=== PATIENT | male | born 1950 | race Caucasian/White ===

== ENCOUNTER → 2018-10-14 | Outpatient (CLI) | payer MEDICARE ==
[~2018-10-14] VITALS: Ht 175.3 cm; Wt 121.0 kg
[~2018-10-14] MED LIST: LIDOCAINE 4% 50 ML SOLUTION TP ONE
[2018-10-14 09:37] VITALS: BP 106/62
== END | disposition home or self-care (01) ==
LOC: HBOWC 08:56
PROVIDERS: ATTEND Emergency Medicine
DX: E11.621 Type 2 diabetes mellitus with foot ulcer (principal); I83.015 Varicose veins of right lower extremity with ulcer other part of foot; L97.512 Non-pressure chronic ulcer of other part of right foot with fat layer exposed; I83.025 Varicose veins of left lower extremity with ulcer other part of foot; L97.522 Non-pressure chronic ulcer of other part of left foot with fat layer exposed; E11.42 Type 2 diabetes mellitus with diabetic polyneuropathy; E11.51 Type 2 diabetes mellitus with diabetic peripheral angiopathy without gangrene; I87.2 Venous insufficiency (chronic) (peripheral); I11.0 Hypertensive heart disease with heart failure; I50.9 Heart failure, unspecified; E78.5 Hyperlipidemia, unspecified; E03.9 Hypothyroidism, unspecified; E66.9 Obesity, unspecified; G47.30 Sleep apnea, unspecified; Z95.820 Peripheral vascular angioplasty status with implants and grafts
CPT/HCPCS: 11042; 11045

== ENCOUNTER → 2018-10-21 | Outpatient (CLI) | payer MEDICARE ==
[~2018-10-21] MED LIST changes: +ACET-2247 PO; +ALLO100T PO; +AMIN30LI28 PO; +ASCO-360 PO; +BUME1TAB17 PO; +CARV3 PO; +CLOP75TA3 PO; +COLC0.6T67 PO; +DIGO-44 PO; +DSS100 PO; +GABA-533 PO; +GLIP5 PO; +INSNOV SQ; +INSU100I26 SQ; +LEVO137T24 PO; +LISI-662 PO; +MULT-1192 PO; +RANI150T7 PO; +SIMV-260 PO; +SITA50 PO; +SLOWK8 PO
[2018-10-21 09:03] VITALS: BP 122/81
== END | disposition home or self-care (01) ==
LOC: HBOWC 08:30
PROVIDERS: ATTEND Emergency Medicine
DX: E11.621 Type 2 diabetes mellitus with foot ulcer (principal); I83.015 Varicose veins of right lower extremity with ulcer other part of foot; L97.515 Non-pressure chronic ulcer of other part of right foot with muscle involvement without evidence of necrosis; I83.025 Varicose veins of left lower extremity with ulcer other part of foot; L97.522 Non-pressure chronic ulcer of other part of left foot with fat layer exposed; E11.52 Type 2 diabetes mellitus with diabetic peripheral angiopathy with gangrene; I96 Gangrene, not elsewhere classified; E11.42 Type 2 diabetes mellitus with diabetic polyneuropathy; I87.2 Venous insufficiency (chronic) (peripheral); I11.0 Hypertensive heart disease with heart failure; I50.9 Heart failure, unspecified; E78.5 Hyperlipidemia, unspecified; E03.9 Hypothyroidism, unspecified; E66.9 Obesity, unspecified; G47.30 Sleep apnea, unspecified; Z79.4 Long term (current) use of insulin; Z95.820 Peripheral vascular angioplasty status with implants and grafts
CPT/HCPCS: 11042; 11045

== ENCOUNTER → 2018-10-28 | Outpatient (CLI) | payer MEDICARE ==
[~2018-10-28] MED LIST changes: +LIDOCAINE 4% 50 ML SOLUTION ONE; -LIDOCAINE 4% 50 ML SOLUTION TP ONE
[2018-10-28 09:05] VITALS: BP 121/71
== END | disposition home or self-care (01) ==
LOC: HBOWC 08:37
PROVIDERS: ATTEND Emergency Medicine
DX: E11.622 Type 2 diabetes mellitus with other skin ulcer (principal); I83.015 Varicose veins of right lower extremity with ulcer other part of foot; L97.515 Non-pressure chronic ulcer of other part of right foot with muscle involvement without evidence of necrosis; I83.025 Varicose veins of left lower extremity with ulcer other part of foot; L97.522 Non-pressure chronic ulcer of other part of left foot with fat layer exposed; E11.52 Type 2 diabetes mellitus with diabetic peripheral angiopathy with gangrene; I96 Gangrene, not elsewhere classified; E11.42 Type 2 diabetes mellitus with diabetic polyneuropathy; I87.2 Venous insufficiency (chronic) (peripheral); I11.0 Hypertensive heart disease with heart failure; I50.9 Heart failure, unspecified; E78.5 Hyperlipidemia, unspecified; E03.9 Hypothyroidism, unspecified; E66.9 Obesity, unspecified; G47.30 Sleep apnea, unspecified; Z79.4 Long term (current) use of insulin; Z95.820 Peripheral vascular angioplasty status with implants and grafts
CPT/HCPCS: 11042; 11045

== ENCOUNTER → 2018-11-04 | Outpatient (CLI) | payer MEDICARE ==
[~2018-11-04] MED LIST changes: -LIDOCAINE 4% 50 ML SOLUTION ONE; +LIDOCAINE 4% 50 ML SOLUTION TP ONE
[2018-11-04 09:04] VITALS: BP 118/66
== END | disposition home or self-care (01) ==
LOC: HBOWC 07:30
PROVIDERS: ATTEND Emergency Medicine
DX: E11.622 Type 2 diabetes mellitus with other skin ulcer (principal); I83.015 Varicose veins of right lower extremity with ulcer other part of foot; L97.515 Non-pressure chronic ulcer of other part of right foot with muscle involvement without evidence of necrosis; I83.025 Varicose veins of left lower extremity with ulcer other part of foot; L97.522 Non-pressure chronic ulcer of other part of left foot with fat layer exposed; E11.52 Type 2 diabetes mellitus with diabetic peripheral angiopathy with gangrene; I96 Gangrene, not elsewhere classified; E11.42 Type 2 diabetes mellitus with diabetic polyneuropathy; I87.2 Venous insufficiency (chronic) (peripheral); I11.0 Hypertensive heart disease with heart failure; I50.9 Heart failure, unspecified; E78.5 Hyperlipidemia, unspecified; E03.9 Hypothyroidism, unspecified; E66.9 Obesity, unspecified; G47.30 Sleep apnea, unspecified; Z79.4 Long term (current) use of insulin; Z95.820 Peripheral vascular angioplasty status with implants and grafts
CPT/HCPCS: 11042; 11045; 87070; 87205

== ENCOUNTER → 2018-11-11 | Outpatient (CLI) | payer MEDICARE ==
[~2018-11-11] MED LIST changes: -LIDOCAINE 4% 50 ML SOLUTION TP ONE
[2018-11-11 09:15] VITALS: BP 110/58
== END | disposition home or self-care (01) ==
LOC: HBOWC 09:05
PROVIDERS: ATTEND Emergency Medicine
DX: E11.622 Type 2 diabetes mellitus with other skin ulcer (principal); I83.015 Varicose veins of right lower extremity with ulcer other part of foot; L97.515 Non-pressure chronic ulcer of other part of right foot with muscle involvement without evidence of necrosis; I83.025 Varicose veins of left lower extremity with ulcer other part of foot; L97.522 Non-pressure chronic ulcer of other part of left foot with fat layer exposed; E11.52 Type 2 diabetes mellitus with diabetic peripheral angiopathy with gangrene; I96 Gangrene, not elsewhere classified; E11.42 Type 2 diabetes mellitus with diabetic polyneuropathy; I87.2 Venous insufficiency (chronic) (peripheral); I11.0 Hypertensive heart disease with heart failure; I50.9 Heart failure, unspecified; E78.5 Hyperlipidemia, unspecified; E03.9 Hypothyroidism, unspecified; E66.9 Obesity, unspecified; G47.30 Sleep apnea, unspecified; Z79.4 Long term (current) use of insulin; Z95.820 Peripheral vascular angioplasty status with implants and grafts
CPT/HCPCS: 11042; 11045; 94761

== ENCOUNTER → 2018-11-18 | Outpatient (CLI) | payer MEDICARE ==
[~2018-11-18] MED LIST changes: +LIDOCAINE 4% 50 ML SOLUTION TP ONE
[2018-11-18 09:05] VITALS: BP 108/66
== END | disposition home or self-care (01) ==
LOC: HBOWC 07:44
PROVIDERS: ATTEND Emergency Medicine
DX: E11.622 Type 2 diabetes mellitus with other skin ulcer (principal); I83.015 Varicose veins of right lower extremity with ulcer other part of foot; L97.515 Non-pressure chronic ulcer of other part of right foot with muscle involvement without evidence of necrosis; I83.025 Varicose veins of left lower extremity with ulcer other part of foot; L97.522 Non-pressure chronic ulcer of other part of left foot with fat layer exposed; E11.52 Type 2 diabetes mellitus with diabetic peripheral angiopathy with gangrene; I96 Gangrene, not elsewhere classified; E11.42 Type 2 diabetes mellitus with diabetic polyneuropathy; I87.2 Venous insufficiency (chronic) (peripheral); I11.0 Hypertensive heart disease with heart failure; I50.9 Heart failure, unspecified; E78.5 Hyperlipidemia, unspecified; E03.9 Hypothyroidism, unspecified; E66.9 Obesity, unspecified; G47.30 Sleep apnea, unspecified; Z79.4 Long term (current) use of insulin; Z95.820 Peripheral vascular angioplasty status with implants and grafts
CPT/HCPCS: 11042; 11045; 87070; 87205

== ENCOUNTER → 2018-11-25 | Outpatient (CLI) | payer MEDICARE ==
[~2018-11-25] MED LIST changes: -LIDOCAINE 4% 50 ML SOLUTION TP ONE
[2018-11-25 08:49] VITALS: BP 112/62
== END | disposition home or self-care (01) ==
LOC: HBOWC 07:34
PROVIDERS: ATTEND Emergency Medicine
DX: E11.621 Type 2 diabetes mellitus with foot ulcer (principal); I83.015 Varicose veins of right lower extremity with ulcer other part of foot; L97.512 Non-pressure chronic ulcer of other part of right foot with fat layer exposed; I83.025 Varicose veins of left lower extremity with ulcer other part of foot; L97.522 Non-pressure chronic ulcer of other part of left foot with fat layer exposed; I87.2 Venous insufficiency (chronic) (peripheral); E11.52 Type 2 diabetes mellitus with diabetic peripheral angiopathy with gangrene; I96 Gangrene, not elsewhere classified; E11.42 Type 2 diabetes mellitus with diabetic polyneuropathy; I11.0 Hypertensive heart disease with heart failure; I50.9 Heart failure, unspecified; E78.5 Hyperlipidemia, unspecified; E03.9 Hypothyroidism, unspecified; E66.9 Obesity, unspecified; G47.30 Sleep apnea, unspecified; Z79.4 Long term (current) use of insulin; Z95.820 Peripheral vascular angioplasty status with implants and grafts
CPT/HCPCS: 11042; 11045

== ENCOUNTER → 2018-12-02 | Outpatient (CLI) | payer MEDICARE ==
[~2018-12-02] MED LIST changes: +AMOX250T PO; +SULF1TAB41 PO
[2018-12-02 09:00] VITALS: BP 100/52
== END | disposition home or self-care (01) ==
LOC: HBOWC 07:33
PROVIDERS: ATTEND Emergency Medicine
DX: E11.621 Type 2 diabetes mellitus with foot ulcer (principal); I83.015 Varicose veins of right lower extremity with ulcer other part of foot; L97.512 Non-pressure chronic ulcer of other part of right foot with fat layer exposed; I83.025 Varicose veins of left lower extremity with ulcer other part of foot; L97.522 Non-pressure chronic ulcer of other part of left foot with fat layer exposed; I87.2 Venous insufficiency (chronic) (peripheral); E11.52 Type 2 diabetes mellitus with diabetic peripheral angiopathy with gangrene; I96 Gangrene, not elsewhere classified; E11.42 Type 2 diabetes mellitus with diabetic polyneuropathy; I11.0 Hypertensive heart disease with heart failure; I50.9 Heart failure, unspecified; E78.5 Hyperlipidemia, unspecified; E03.9 Hypothyroidism, unspecified; E66.9 Obesity, unspecified; G47.30 Sleep apnea, unspecified; Z79.4 Long term (current) use of insulin; Z95.820 Peripheral vascular angioplasty status with implants and grafts
CPT/HCPCS: 11042; 11045

== ENCOUNTER → 2018-12-09 | Outpatient (CLI) | payer MEDICARE ==
[2018-12-09 08:31] VITALS: BP 100/70
== END | disposition home or self-care (01) ==
LOC: HBOWC 07:27
PROVIDERS: ATTEND Emergency Medicine
DX: E11.621 Type 2 diabetes mellitus with foot ulcer (principal); I83.015 Varicose veins of right lower extremity with ulcer other part of foot; L97.512 Non-pressure chronic ulcer of other part of right foot with fat layer exposed; I83.025 Varicose veins of left lower extremity with ulcer other part of foot; L97.522 Non-pressure chronic ulcer of other part of left foot with fat layer exposed; I87.2 Venous insufficiency (chronic) (peripheral); E11.52 Type 2 diabetes mellitus with diabetic peripheral angiopathy with gangrene; I96 Gangrene, not elsewhere classified; E11.42 Type 2 diabetes mellitus with diabetic polyneuropathy; I11.0 Hypertensive heart disease with heart failure; I50.9 Heart failure, unspecified; E78.5 Hyperlipidemia, unspecified; E03.9 Hypothyroidism, unspecified; E66.9 Obesity, unspecified; G47.30 Sleep apnea, unspecified; Z79.4 Long term (current) use of insulin; Z95.820 Peripheral vascular angioplasty status with implants and grafts
CPT/HCPCS: 11042; 11045

== ENCOUNTER → 2018-12-15 | Outpatient (CLI) | payer MEDICARE ==
[~2018-12-15] MED LIST changes: +LIDOCAINE 4% 50 ML SOLUTION TP ONE
[2018-12-15 09:05] VITALS: BP 98/70
== END | disposition home or self-care (01) ==
LOC: HBOWC 07:22
PROVIDERS: ATTEND Surgery Plastic and Reconstructive Surgery
DX: E11.621 Type 2 diabetes mellitus with foot ulcer (principal); I83.015 Varicose veins of right lower extremity with ulcer other part of foot; L97.512 Non-pressure chronic ulcer of other part of right foot with fat layer exposed; I83.025 Varicose veins of left lower extremity with ulcer other part of foot; L97.522 Non-pressure chronic ulcer of other part of left foot with fat layer exposed; I87.2 Venous insufficiency (chronic) (peripheral); E11.52 Type 2 diabetes mellitus with diabetic peripheral angiopathy with gangrene; I96 Gangrene, not elsewhere classified; E11.42 Type 2 diabetes mellitus with diabetic polyneuropathy; I11.0 Hypertensive heart disease with heart failure; I50.9 Heart failure, unspecified; E78.5 Hyperlipidemia, unspecified; E03.9 Hypothyroidism, unspecified; E66.9 Obesity, unspecified; G47.30 Sleep apnea, unspecified; Z79.4 Long term (current) use of insulin; Z95.820 Peripheral vascular angioplasty status with implants and grafts
CPT/HCPCS: 11042; 11045

== ENCOUNTER → 2018-12-23 | Outpatient (CLI) | payer MEDICARE ==
[2018-12-23 08:40] VITALS: BP 98/52
== END | disposition home or self-care (01) ==
LOC: HBOWC 07:06
PROVIDERS: ATTEND Emergency Medicine
DX: E11.621 Type 2 diabetes mellitus with foot ulcer (principal); I83.015 Varicose veins of right lower extremity with ulcer other part of foot; L97.512 Non-pressure chronic ulcer of other part of right foot with fat layer exposed; I83.025 Varicose veins of left lower extremity with ulcer other part of foot; L97.522 Non-pressure chronic ulcer of other part of left foot with fat layer exposed; I87.2 Venous insufficiency (chronic) (peripheral); E11.52 Type 2 diabetes mellitus with diabetic peripheral angiopathy with gangrene; I96 Gangrene, not elsewhere classified; E11.42 Type 2 diabetes mellitus with diabetic polyneuropathy; I11.0 Hypertensive heart disease with heart failure; I50.9 Heart failure, unspecified; E78.5 Hyperlipidemia, unspecified; E03.9 Hypothyroidism, unspecified; E66.9 Obesity, unspecified; G47.30 Sleep apnea, unspecified; Z79.4 Long term (current) use of insulin; Z95.820 Peripheral vascular angioplasty status with implants and grafts
CPT/HCPCS: 11042; 11045

== ENCOUNTER → 2018-12-30 | Outpatient (CLI) | payer MEDICARE ==
[~2018-12-30] MED LIST changes: -BUME1TAB17 PO; +BUME1TAB34 PO; +LIDOCAINE 4% 50 ML SOLUTION ONE; -LIDOCAINE 4% 50 ML SOLUTION TP ONE
[2018-12-30 10:45] VITALS: BP 109/65
== END | disposition home or self-care (01) ==
LOC: HBOWC 07:24
PROVIDERS: ATTEND Emergency Medicine
DX: E11.621 Type 2 diabetes mellitus with foot ulcer (principal); I83.015 Varicose veins of right lower extremity with ulcer other part of foot; L97.512 Non-pressure chronic ulcer of other part of right foot with fat layer exposed; I83.025 Varicose veins of left lower extremity with ulcer other part of foot; L97.522 Non-pressure chronic ulcer of other part of left foot with fat layer exposed; E11.42 Type 2 diabetes mellitus with diabetic polyneuropathy; E11.51 Type 2 diabetes mellitus with diabetic peripheral angiopathy without gangrene; I87.2 Venous insufficiency (chronic) (peripheral); E11.52 Type 2 diabetes mellitus with diabetic peripheral angiopathy with gangrene; I96 Gangrene, not elsewhere classified; I11.0 Hypertensive heart disease with heart failure; I50.9 Heart failure, unspecified; E78.5 Hyperlipidemia, unspecified; E03.9 Hypothyroidism, unspecified; E66.9 Obesity, unspecified; G47.30 Sleep apnea, unspecified; Z95.820 Peripheral vascular angioplasty status with implants and grafts; Z79.4 Long term (current) use of insulin
CPT/HCPCS: 11042; 11045

== ENCOUNTER → 2019-01-06 | Outpatient (CLI) | payer MEDICARE ==
[~2019-01-06] MED LIST changes: -LIDOCAINE 4% 50 ML SOLUTION ONE
[2019-01-06 08:00] VITALS: BP_SYST 100; BP_SYST 129; BP_DIAS 56
[2019-01-06 12:19] VITALS: BP 122/53
== END | disposition home or self-care (01) ==
LOC: HBOWC 07:39
PROVIDERS: ATTEND Emergency Medicine
DX: E11.621 Type 2 diabetes mellitus with foot ulcer (principal); I83.015 Varicose veins of right lower extremity with ulcer other part of foot; L97.512 Non-pressure chronic ulcer of other part of right foot with fat layer exposed; I83.025 Varicose veins of left lower extremity with ulcer other part of foot; L97.522 Non-pressure chronic ulcer of other part of left foot with fat layer exposed; E11.42 Type 2 diabetes mellitus with diabetic polyneuropathy; E11.51 Type 2 diabetes mellitus with diabetic peripheral angiopathy without gangrene; I87.2 Venous insufficiency (chronic) (peripheral); E11.52 Type 2 diabetes mellitus with diabetic peripheral angiopathy with gangrene; I96 Gangrene, not elsewhere classified; I11.0 Hypertensive heart disease with heart failure; I50.9 Heart failure, unspecified; E78.5 Hyperlipidemia, unspecified; E03.9 Hypothyroidism, unspecified; E66.9 Obesity, unspecified; G47.30 Sleep apnea, unspecified; Z95.820 Peripheral vascular angioplasty status with implants and grafts; Z79.4 Long term (current) use of insulin
CPT/HCPCS: 11042; 11045

== ENCOUNTER → 2019-01-13 | Outpatient (CLI) | payer MEDICARE ==
[~2019-01-13] MED LIST changes: +LIDOCAINE 4% 50 ML SOLUTION TP ONE
[2019-01-13 08:42] VITALS: BP 100/60
== END | disposition home or self-care (01) ==
LOC: HBOWC 07:36
PROVIDERS: ATTEND Emergency Medicine
DX: E11.621 Type 2 diabetes mellitus with foot ulcer (principal); I83.015 Varicose veins of right lower extremity with ulcer other part of foot; L97.512 Non-pressure chronic ulcer of other part of right foot with fat layer exposed; I83.025 Varicose veins of left lower extremity with ulcer other part of foot; L97.522 Non-pressure chronic ulcer of other part of left foot with fat layer exposed; E11.42 Type 2 diabetes mellitus with diabetic polyneuropathy; E11.51 Type 2 diabetes mellitus with diabetic peripheral angiopathy without gangrene; I87.2 Venous insufficiency (chronic) (peripheral); E11.52 Type 2 diabetes mellitus with diabetic peripheral angiopathy with gangrene; I96 Gangrene, not elsewhere classified; I11.0 Hypertensive heart disease with heart failure; I50.9 Heart failure, unspecified; E78.5 Hyperlipidemia, unspecified; E03.9 Hypothyroidism, unspecified; E66.9 Obesity, unspecified; G47.30 Sleep apnea, unspecified; Z95.820 Peripheral vascular angioplasty status with implants and grafts; Z79.4 Long term (current) use of insulin
CPT/HCPCS: 11042; 11045

== ENCOUNTER → 2019-01-21 | Outpatient (CLI) | payer MEDICARE ==
[~2019-01-21] MED LIST changes: +LIDOCAINE 2% 5 ML JELLY TP ONE; -LIDOCAINE 4% 50 ML SOLUTION TP ONE
[2019-01-21 08:00] VITALS: BP 100/51
== END | disposition home or self-care (01) ==
LOC: HBOWC 07:12
PROVIDERS: ATTEND Internal Medicine
DX: E11.621 Type 2 diabetes mellitus with foot ulcer (principal); I83.015 Varicose veins of right lower extremity with ulcer other part of foot; L97.512 Non-pressure chronic ulcer of other part of right foot with fat layer exposed; I83.025 Varicose veins of left lower extremity with ulcer other part of foot; L97.522 Non-pressure chronic ulcer of other part of left foot with fat layer exposed; E11.42 Type 2 diabetes mellitus with diabetic polyneuropathy; E11.51 Type 2 diabetes mellitus with diabetic peripheral angiopathy without gangrene; I87.2 Venous insufficiency (chronic) (peripheral); E11.52 Type 2 diabetes mellitus with diabetic peripheral angiopathy with gangrene; I96 Gangrene, not elsewhere classified; I11.0 Hypertensive heart disease with heart failure; I50.9 Heart failure, unspecified; E78.5 Hyperlipidemia, unspecified; E03.9 Hypothyroidism, unspecified; E66.9 Obesity, unspecified; G47.30 Sleep apnea, unspecified; Z95.820 Peripheral vascular angioplasty status with implants and grafts; Z79.4 Long term (current) use of insulin
CPT/HCPCS: 11042; 11045

== ENCOUNTER → 2019-01-28 | Outpatient (CLI) | payer MEDICARE ==
[~2019-01-28] MED LIST changes: -COLC0.6T67 PO; +COLC0.6T76 PO
[2019-01-28 08:29] VITALS: BP 98/58
== END | disposition home or self-care (01) ==
LOC: HBOWC 07:27
PROVIDERS: ATTEND Internal Medicine
DX: E11.621 Type 2 diabetes mellitus with foot ulcer (principal); I83.015 Varicose veins of right lower extremity with ulcer other part of foot; L97.512 Non-pressure chronic ulcer of other part of right foot with fat layer exposed; I83.025 Varicose veins of left lower extremity with ulcer other part of foot; L97.522 Non-pressure chronic ulcer of other part of left foot with fat layer exposed; E11.42 Type 2 diabetes mellitus with diabetic polyneuropathy; E11.51 Type 2 diabetes mellitus with diabetic peripheral angiopathy without gangrene; I87.2 Venous insufficiency (chronic) (peripheral); E11.52 Type 2 diabetes mellitus with diabetic peripheral angiopathy with gangrene; I96 Gangrene, not elsewhere classified; I11.0 Hypertensive heart disease with heart failure; I50.9 Heart failure, unspecified; E78.5 Hyperlipidemia, unspecified; E03.9 Hypothyroidism, unspecified; E66.9 Obesity, unspecified; G47.30 Sleep apnea, unspecified; Z95.820 Peripheral vascular angioplasty status with implants and grafts; Z79.4 Long term (current) use of insulin
CPT/HCPCS: 11042; 11045

== ENCOUNTER → 2019-02-10 | Outpatient (CLI) | payer MEDICARE ==
[2019-02-10 08:33] VITALS: BP 102/63
== END | disposition home or self-care (01) ==
LOC: HBOWC 07:38
PROVIDERS: ATTEND Emergency Medicine
DX: E11.621 Type 2 diabetes mellitus with foot ulcer (principal); I83.015 Varicose veins of right lower extremity with ulcer other part of foot; L97.512 Non-pressure chronic ulcer of other part of right foot with fat layer exposed; I83.025 Varicose veins of left lower extremity with ulcer other part of foot; L97.522 Non-pressure chronic ulcer of other part of left foot with fat layer exposed; E11.42 Type 2 diabetes mellitus with diabetic polyneuropathy; I87.2 Venous insufficiency (chronic) (peripheral); E11.52 Type 2 diabetes mellitus with diabetic peripheral angiopathy with gangrene; I96 Gangrene, not elsewhere classified; I11.0 Hypertensive heart disease with heart failure; I50.9 Heart failure, unspecified; E78.5 Hyperlipidemia, unspecified; E03.9 Hypothyroidism, unspecified; G47.30 Sleep apnea, unspecified; E66.01 Morbid (severe) obesity due to excess calories; Z95.820 Peripheral vascular angioplasty status with implants and grafts; Z79.4 Long term (current) use of insulin
CPT/HCPCS: 11042; 11045

== ENCOUNTER → 2019-02-17 | Outpatient (CLI) | payer MEDICARE ==
[~2019-02-17] MED LIST changes: -LIDOCAINE 2% 5 ML JELLY TP ONE
[2019-02-17 08:36] VITALS: BP_SYST 123
== END | disposition home or self-care (01) ==
LOC: HBOWC 07:18
PROVIDERS: ATTEND Emergency Medicine
DX: E11.621 Type 2 diabetes mellitus with foot ulcer (principal); I83.015 Varicose veins of right lower extremity with ulcer other part of foot; L97.512 Non-pressure chronic ulcer of other part of right foot with fat layer exposed; I83.025 Varicose veins of left lower extremity with ulcer other part of foot; L97.522 Non-pressure chronic ulcer of other part of left foot with fat layer exposed; E11.42 Type 2 diabetes mellitus with diabetic polyneuropathy; I87.2 Venous insufficiency (chronic) (peripheral); E11.52 Type 2 diabetes mellitus with diabetic peripheral angiopathy with gangrene; I96 Gangrene, not elsewhere classified; I11.0 Hypertensive heart disease with heart failure; I50.9 Heart failure, unspecified; E78.5 Hyperlipidemia, unspecified; E03.9 Hypothyroidism, unspecified; G47.30 Sleep apnea, unspecified; E66.01 Morbid (severe) obesity due to excess calories; Z95.820 Peripheral vascular angioplasty status with implants and grafts; Z79.4 Long term (current) use of insulin
CPT/HCPCS: 11042

== ENCOUNTER → 2019-02-24 | Outpatient (CLI) | payer MEDICARE ==
[~2019-02-24] MED LIST changes: -DIGO-44 PO; +DIGO125T84 PO; +LIDOCAINE 2% 5 ML JELLY TP ONE
[2019-02-24 08:18] VITALS: BP 108/56
== END | disposition home or self-care (01) ==
LOC: HBOWC 07:37
PROVIDERS: ATTEND Emergency Medicine
DX: E11.621 Type 2 diabetes mellitus with foot ulcer (principal); L97.512 Non-pressure chronic ulcer of other part of right foot with fat layer exposed; L97.522 Non-pressure chronic ulcer of other part of left foot with fat layer exposed; I83.015 Varicose veins of right lower extremity with ulcer other part of foot; I83.025 Varicose veins of left lower extremity with ulcer other part of foot; E11.42 Type 2 diabetes mellitus with diabetic polyneuropathy; I87.2 Venous insufficiency (chronic) (peripheral); E11.52 Type 2 diabetes mellitus with diabetic peripheral angiopathy with gangrene; I96 Gangrene, not elsewhere classified; E78.5 Hyperlipidemia, unspecified; I11.0 Hypertensive heart disease with heart failure; I50.9 Heart failure, unspecified; E03.9 Hypothyroidism, unspecified; G47.30 Sleep apnea, unspecified; E66.01 Morbid (severe) obesity due to excess calories; Z95.820 Peripheral vascular angioplasty status with implants and grafts; Z79.4 Long term (current) use of insulin
CPT/HCPCS: 11042

== ENCOUNTER → 2019-03-03 | Outpatient (CLI) | payer MEDICARE ==
[2019-03-03 08:21] VITALS: BP 104/60
== END | disposition home or self-care (01) ==
LOC: HBOWC 07:21
PROVIDERS: ATTEND Emergency Medicine
DX: E11.621 Type 2 diabetes mellitus with foot ulcer (principal); L97.512 Non-pressure chronic ulcer of other part of right foot with fat layer exposed; L97.522 Non-pressure chronic ulcer of other part of left foot with fat layer exposed; I83.015 Varicose veins of right lower extremity with ulcer other part of foot; I83.025 Varicose veins of left lower extremity with ulcer other part of foot; E11.42 Type 2 diabetes mellitus with diabetic polyneuropathy; I87.2 Venous insufficiency (chronic) (peripheral); E11.52 Type 2 diabetes mellitus with diabetic peripheral angiopathy with gangrene; I96 Gangrene, not elsewhere classified; E78.5 Hyperlipidemia, unspecified; I11.0 Hypertensive heart disease with heart failure; I50.9 Heart failure, unspecified; E03.9 Hypothyroidism, unspecified; G47.30 Sleep apnea, unspecified; E66.01 Morbid (severe) obesity due to excess calories; Z95.820 Peripheral vascular angioplasty status with implants and grafts; Z79.4 Long term (current) use of insulin
CPT/HCPCS: 11042

== ENCOUNTER → 2019-03-10 | Outpatient (CLI) | payer MEDICARE ==
[~2019-03-10] MED LIST changes: -LIDOCAINE 2% 5 ML JELLY TP ONE
[2019-03-10 08:00] VITALS: BP 116/58
== END | disposition home or self-care (01) ==
LOC: HBOWC 07:32
PROVIDERS: ATTEND Emergency Medicine
DX: E11.621 Type 2 diabetes mellitus with foot ulcer (principal); L97.512 Non-pressure chronic ulcer of other part of right foot with fat layer exposed; L97.522 Non-pressure chronic ulcer of other part of left foot with fat layer exposed; I83.015 Varicose veins of right lower extremity with ulcer other part of foot; I83.025 Varicose veins of left lower extremity with ulcer other part of foot; E11.42 Type 2 diabetes mellitus with diabetic polyneuropathy; I87.2 Venous insufficiency (chronic) (peripheral); E11.52 Type 2 diabetes mellitus with diabetic peripheral angiopathy with gangrene; I96 Gangrene, not elsewhere classified; E78.5 Hyperlipidemia, unspecified; I11.0 Hypertensive heart disease with heart failure; I50.9 Heart failure, unspecified; E03.9 Hypothyroidism, unspecified; G47.30 Sleep apnea, unspecified; E66.01 Morbid (severe) obesity due to excess calories; Z95.820 Peripheral vascular angioplasty status with implants and grafts; Z79.4 Long term (current) use of insulin
CPT/HCPCS: 11042

== ENCOUNTER → 2019-03-17 | Outpatient (CLI) | payer MEDICARE ==
[~2019-03-17] MED LIST changes: +LIDOCAINE 2% 5 ML JELLY ONE
[2019-03-17 08:37] VITALS: BP 112/56
== END | disposition home or self-care (01) ==
LOC: HBOWC 07:47
PROVIDERS: ATTEND Emergency Medicine
DX: E11.621 Type 2 diabetes mellitus with foot ulcer (principal); L97.512 Non-pressure chronic ulcer of other part of right foot with fat layer exposed; L97.522 Non-pressure chronic ulcer of other part of left foot with fat layer exposed; I83.015 Varicose veins of right lower extremity with ulcer other part of foot; I83.025 Varicose veins of left lower extremity with ulcer other part of foot; E11.42 Type 2 diabetes mellitus with diabetic polyneuropathy; I87.2 Venous insufficiency (chronic) (peripheral); E11.52 Type 2 diabetes mellitus with diabetic peripheral angiopathy with gangrene; I96 Gangrene, not elsewhere classified; E78.5 Hyperlipidemia, unspecified; I11.0 Hypertensive heart disease with heart failure; I50.9 Heart failure, unspecified; E03.9 Hypothyroidism, unspecified; G47.30 Sleep apnea, unspecified; E66.01 Morbid (severe) obesity due to excess calories; Z95.820 Peripheral vascular angioplasty status with implants and grafts; Z79.4 Long term (current) use of insulin
CPT/HCPCS: 11042

== ENCOUNTER → 2019-03-24 | Outpatient (CLI) | payer MEDICARE ==
[~2019-03-24] MED LIST changes: -LIDOCAINE 2% 5 ML JELLY ONE; +LIDOCAINE 2% 5 ML JELLY TP ONE
[2019-03-24 08:26] VITALS: BP 127/76
== END | disposition home or self-care (01) ==
LOC: HBOWC 07:20
PROVIDERS: ATTEND Emergency Medicine
DX: E11.621 Type 2 diabetes mellitus with foot ulcer (principal); L97.512 Non-pressure chronic ulcer of other part of right foot with fat layer exposed; L97.522 Non-pressure chronic ulcer of other part of left foot with fat layer exposed; I83.015 Varicose veins of right lower extremity with ulcer other part of foot; I83.025 Varicose veins of left lower extremity with ulcer other part of foot; E11.42 Type 2 diabetes mellitus with diabetic polyneuropathy; I87.2 Venous insufficiency (chronic) (peripheral); E11.52 Type 2 diabetes mellitus with diabetic peripheral angiopathy with gangrene; I96 Gangrene, not elsewhere classified; E78.5 Hyperlipidemia, unspecified; I11.0 Hypertensive heart disease with heart failure; I50.9 Heart failure, unspecified; E03.9 Hypothyroidism, unspecified; G47.30 Sleep apnea, unspecified; E66.01 Morbid (severe) obesity due to excess calories; Z95.820 Peripheral vascular angioplasty status with implants and grafts; Z79.4 Long term (current) use of insulin
CPT/HCPCS: 11042

== ENCOUNTER → 2019-03-31 | Outpatient (CLI) | payer MEDICARE ==
[~2019-03-31] MED LIST changes: -LIDOCAINE 2% 5 ML JELLY TP ONE
[2019-03-31 08:00] VITALS: BP 101/52
== END | disposition home or self-care (01) ==
LOC: HBOWC 07:27
PROVIDERS: ATTEND Emergency Medicine
DX: E11.621 Type 2 diabetes mellitus with foot ulcer (principal); L97.512 Non-pressure chronic ulcer of other part of right foot with fat layer exposed; L97.522 Non-pressure chronic ulcer of other part of left foot with fat layer exposed; I83.015 Varicose veins of right lower extremity with ulcer other part of foot; I83.025 Varicose veins of left lower extremity with ulcer other part of foot; E11.42 Type 2 diabetes mellitus with diabetic polyneuropathy; I87.2 Venous insufficiency (chronic) (peripheral); E11.52 Type 2 diabetes mellitus with diabetic peripheral angiopathy with gangrene; I96 Gangrene, not elsewhere classified; E78.5 Hyperlipidemia, unspecified; I11.0 Hypertensive heart disease with heart failure; I50.9 Heart failure, unspecified; E03.9 Hypothyroidism, unspecified; G47.30 Sleep apnea, unspecified; E66.01 Morbid (severe) obesity due to excess calories; Z95.820 Peripheral vascular angioplasty status with implants and grafts; Z79.4 Long term (current) use of insulin
CPT/HCPCS: 11042

== ENCOUNTER → 2019-04-14 | Outpatient (CLI) | payer MEDICARE, OTHER ==
[~2019-04-14] MED LIST changes: +COLC0.6T73 PO; -COLC0.6T76 PO
[2019-04-14 08:19] VITALS: BP 109/64
== END | disposition home or self-care (01) ==
LOC: HBOWC 07:39
PROVIDERS: ATTEND Emergency Medicine
DX: S91.302D Unspecified open wound, left foot, subsequent encounter (principal); S91.301D Unspecified open wound, right foot, subsequent encounter; I83.893 Varicose veins of bilateral lower extremities with other complications; E11.42 Type 2 diabetes mellitus with diabetic polyneuropathy; E11.52 Type 2 diabetes mellitus with diabetic peripheral angiopathy with gangrene; I96 Gangrene, not elsewhere classified; E78.5 Hyperlipidemia, unspecified; I11.0 Hypertensive heart disease with heart failure; I50.9 Heart failure, unspecified; E03.9 Hypothyroidism, unspecified; G47.30 Sleep apnea, unspecified; E66.01 Morbid (severe) obesity due to excess calories; B35.3 Tinea pedis; Z79.4 Long term (current) use of insulin; Z95.820 Peripheral vascular angioplasty status with implants and grafts; X58.XXXD Exposure to other specified factors, subsequent encounter
CPT/HCPCS: 11042

== ENCOUNTER → 2019-04-21 | Outpatient (CLI) | payer MEDICARE, OTHER ==
[2019-04-21 10:04] VITALS: BP 110/57
== END | disposition home or self-care (01) ==
LOC: HBOWC 09:25
PROVIDERS: ATTEND Emergency Medicine
DX: S91.302D Unspecified open wound, left foot, subsequent encounter (principal); S91.301D Unspecified open wound, right foot, subsequent encounter; I83.893 Varicose veins of bilateral lower extremities with other complications; E11.42 Type 2 diabetes mellitus with diabetic polyneuropathy; E11.52 Type 2 diabetes mellitus with diabetic peripheral angiopathy with gangrene; I96 Gangrene, not elsewhere classified; E78.5 Hyperlipidemia, unspecified; I11.0 Hypertensive heart disease with heart failure; I50.9 Heart failure, unspecified; E03.9 Hypothyroidism, unspecified; G47.30 Sleep apnea, unspecified; E66.01 Morbid (severe) obesity due to excess calories; B35.3 Tinea pedis; Z79.4 Long term (current) use of insulin; Z95.820 Peripheral vascular angioplasty status with implants and grafts; X58.XXXD Exposure to other specified factors, subsequent encounter

== ENCOUNTER → 2019-04-28 | Outpatient (CLI) | payer MEDICARE, OTHER ==
[2019-04-28 10:10] VITALS: BP 110/60
== END | disposition home or self-care (01) ==
LOC: HBOWC 08:05
PROVIDERS: ATTEND Emergency Medicine
DX: S91.302D Unspecified open wound, left foot, subsequent encounter (principal); S91.301D Unspecified open wound, right foot, subsequent encounter; I83.893 Varicose veins of bilateral lower extremities with other complications; E11.42 Type 2 diabetes mellitus with diabetic polyneuropathy; E11.52 Type 2 diabetes mellitus with diabetic peripheral angiopathy with gangrene; I96 Gangrene, not elsewhere classified; E78.5 Hyperlipidemia, unspecified; I11.0 Hypertensive heart disease with heart failure; I50.9 Heart failure, unspecified; E03.9 Hypothyroidism, unspecified; G47.30 Sleep apnea, unspecified; E66.01 Morbid (severe) obesity due to excess calories; B35.3 Tinea pedis; Z79.4 Long term (current) use of insulin; Z95.820 Peripheral vascular angioplasty status with implants and grafts; X58.XXXD Exposure to other specified factors, subsequent encounter

== ENCOUNTER → 2019-05-12 | Outpatient (CLI) | payer MEDICARE | END | disposition home or self-care (01) | LOC: HBOWC 07:18 | PROVIDERS: ATTEND Emergency Medicine | DX: I83.025 Varicose veins of left lower extremity with ulcer other part of foot (principal); E11.621 Type 2 diabetes mellitus with foot ulcer; L97.522 Non-pressure chronic ulcer of other part of left foot with fat layer exposed; E11.42 Type 2 diabetes mellitus with diabetic polyneuropathy; E11.52 Type 2 diabetes mellitus with diabetic peripheral angiopathy with gangrene; I96 Gangrene, not elsewhere classified; E78.5 Hyperlipidemia, unspecified; I11.0 Hypertensive heart disease with heart failure; I50.9 Heart failure, unspecified; E03.9 Hypothyroidism, unspecified; E66.01 Morbid (severe) obesity due to excess calories; B35.3 Tinea pedis; Z79.4 Long term (current) use of insulin; Z95.820 Peripheral vascular angioplasty status with implants and grafts; G47.33 Obstructive sleep apnea (adult) (pediatric); I48.91 Unspecified atrial fibrillation | CPT/HCPCS: 11042 ==

== ENCOUNTER → 2019-05-19 | Outpatient (CLI) | payer MEDICARE | END | disposition home or self-care (01) | LOC: HBOWC 07:40 | PROVIDERS: ATTEND Emergency Medicine | DX: I83.025 Varicose veins of left lower extremity with ulcer other part of foot (principal); E11.621 Type 2 diabetes mellitus with foot ulcer; L97.522 Non-pressure chronic ulcer of other part of left foot with fat layer exposed; E11.42 Type 2 diabetes mellitus with diabetic polyneuropathy; E11.52 Type 2 diabetes mellitus with diabetic peripheral angiopathy with gangrene; I96 Gangrene, not elsewhere classified; E78.5 Hyperlipidemia, unspecified; I11.0 Hypertensive heart disease with heart failure; I50.9 Heart failure, unspecified; E03.9 Hypothyroidism, unspecified; E66.01 Morbid (severe) obesity due to excess calories; B35.3 Tinea pedis; Z79.4 Long term (current) use of insulin; Z95.820 Peripheral vascular angioplasty status with implants and grafts; G47.33 Obstructive sleep apnea (adult) (pediatric); I48.91 Unspecified atrial fibrillation | CPT/HCPCS: 11042 ==

== ENCOUNTER → 2019-05-26 | Outpatient (CLI) | payer MEDICARE | END | disposition home or self-care (01) | LOC: HBOWC 07:40 | PROVIDERS: ATTEND Emergency Medicine | DX: I83.025 Varicose veins of left lower extremity with ulcer other part of foot (principal); E11.621 Type 2 diabetes mellitus with foot ulcer; L97.511 Non-pressure chronic ulcer of other part of right foot limited to breakdown of skin; I83.015 Varicose veins of right lower extremity with ulcer other part of foot; L97.521 Non-pressure chronic ulcer of other part of left foot limited to breakdown of skin; E11.42 Type 2 diabetes mellitus with diabetic polyneuropathy; E11.52 Type 2 diabetes mellitus with diabetic peripheral angiopathy with gangrene; I96 Gangrene, not elsewhere classified; E78.5 Hyperlipidemia, unspecified; I11.0 Hypertensive heart disease with heart failure; I50.9 Heart failure, unspecified; E03.9 Hypothyroidism, unspecified; E66.01 Morbid (severe) obesity due to excess calories; I48.91 Unspecified atrial fibrillation; B35.3 Tinea pedis; G47.30 Sleep apnea, unspecified; G47.33 Obstructive sleep apnea (adult) (pediatric); Z95.820 Peripheral vascular angioplasty status with implants and grafts; Z79.4 Long term (current) use of insulin; Z68.39 Body mass index [BMI] 39.0-39.9, adult ==

== ENCOUNTER → 2019-06-02 | Outpatient (CLI) | payer MEDICARE, OTHER | END | disposition home or self-care (01) | LOC: HBOWC 07:24 | PROVIDERS: ATTEND Emergency Medicine | DX: I83.025 Varicose veins of left lower extremity with ulcer other part of foot (principal); E11.621 Type 2 diabetes mellitus with foot ulcer; L97.511 Non-pressure chronic ulcer of other part of right foot limited to breakdown of skin; I83.015 Varicose veins of right lower extremity with ulcer other part of foot; L97.521 Non-pressure chronic ulcer of other part of left foot limited to breakdown of skin; E11.42 Type 2 diabetes mellitus with diabetic polyneuropathy; E11.52 Type 2 diabetes mellitus with diabetic peripheral angiopathy with gangrene; I96 Gangrene, not elsewhere classified; E78.5 Hyperlipidemia, unspecified; I11.0 Hypertensive heart disease with heart failure; I50.9 Heart failure, unspecified; E03.9 Hypothyroidism, unspecified; E66.01 Morbid (severe) obesity due to excess calories; I48.91 Unspecified atrial fibrillation; B35.3 Tinea pedis; G47.30 Sleep apnea, unspecified; G47.33 Obstructive sleep apnea (adult) (pediatric); Z95.820 Peripheral vascular angioplasty status with implants and grafts; Z79.4 Long term (current) use of insulin; Z68.39 Body mass index [BMI] 39.0-39.9, adult ==

== ENCOUNTER → 2019-06-16 | Outpatient (CLI) | payer MEDICARE, OTHER | END | disposition home or self-care (01) | LOC: HBOWC 07:43 | PROVIDERS: ATTEND Emergency Medicine | DX: I83.025 Varicose veins of left lower extremity with ulcer other part of foot (principal); E11.621 Type 2 diabetes mellitus with foot ulcer; L97.511 Non-pressure chronic ulcer of other part of right foot limited to breakdown of skin; I83.015 Varicose veins of right lower extremity with ulcer other part of foot; L97.521 Non-pressure chronic ulcer of other part of left foot limited to breakdown of skin; I70.203 Unspecified atherosclerosis of native arteries of extremities, bilateral legs; E11.42 Type 2 diabetes mellitus with diabetic polyneuropathy; E11.52 Type 2 diabetes mellitus with diabetic peripheral angiopathy with gangrene; I96 Gangrene, not elsewhere classified; E78.5 Hyperlipidemia, unspecified; I11.0 Hypertensive heart disease with heart failure; I50.9 Heart failure, unspecified; E03.9 Hypothyroidism, unspecified; E66.01 Morbid (severe) obesity due to excess calories; I48.91 Unspecified atrial fibrillation; B35.3 Tinea pedis; G47.33 Obstructive sleep apnea (adult) (pediatric); Z95.820 Peripheral vascular angioplasty status with implants and grafts; Z79.4 Long term (current) use of insulin; Z68.39 Body mass index [BMI] 39.0-39.9, adult | CPT/HCPCS: 87070; 87077; G0463; 87205 ==

== ENCOUNTER → 2019-06-23 | Outpatient (CLI) | payer MEDICARE, OTHER | END | disposition home or self-care (01) | LOC: HBOWC 07:24 | PROVIDERS: ATTEND Emergency Medicine | DX: I83.025 Varicose veins of left lower extremity with ulcer other part of foot (principal); E11.621 Type 2 diabetes mellitus with foot ulcer; L97.511 Non-pressure chronic ulcer of other part of right foot limited to breakdown of skin; I83.015 Varicose veins of right lower extremity with ulcer other part of foot; L97.521 Non-pressure chronic ulcer of other part of left foot limited to breakdown of skin; I70.203 Unspecified atherosclerosis of native arteries of extremities, bilateral legs; E11.42 Type 2 diabetes mellitus with diabetic polyneuropathy; E11.52 Type 2 diabetes mellitus with diabetic peripheral angiopathy with gangrene; I96 Gangrene, not elsewhere classified; E78.5 Hyperlipidemia, unspecified; I11.0 Hypertensive heart disease with heart failure; I50.9 Heart failure, unspecified; E03.9 Hypothyroidism, unspecified; E66.01 Morbid (severe) obesity due to excess calories; I48.91 Unspecified atrial fibrillation; B35.3 Tinea pedis; G47.33 Obstructive sleep apnea (adult) (pediatric); Z95.820 Peripheral vascular angioplasty status with implants and grafts; Z79.4 Long term (current) use of insulin; Z68.39 Body mass index [BMI] 39.0-39.9, adult | CPT/HCPCS: 11042 ==

== ENCOUNTER → 2019-06-30 | Outpatient (CLI) | payer MEDICARE, OTHER | END | disposition home or self-care (01) | LOC: HBOWC 07:22 | PROVIDERS: ATTEND Emergency Medicine | DX: I83.025 Varicose veins of left lower extremity with ulcer other part of foot (principal); E11.621 Type 2 diabetes mellitus with foot ulcer; I70.235 Atherosclerosis of native arteries of right leg with ulceration of other part of foot; L97.512 Non-pressure chronic ulcer of other part of right foot with fat layer exposed; I83.015 Varicose veins of right lower extremity with ulcer other part of foot; I70.245 Atherosclerosis of native arteries of left leg with ulceration of other part of foot; L97.522 Non-pressure chronic ulcer of other part of left foot with fat layer exposed; E11.42 Type 2 diabetes mellitus with diabetic polyneuropathy; E11.52 Type 2 diabetes mellitus with diabetic peripheral angiopathy with gangrene; I96 Gangrene, not elsewhere classified; E78.5 Hyperlipidemia, unspecified; I11.0 Hypertensive heart disease with heart failure; I50.9 Heart failure, unspecified; E03.9 Hypothyroidism, unspecified; E66.01 Morbid (severe) obesity due to excess calories; I48.91 Unspecified atrial fibrillation; B35.3 Tinea pedis; G47.33 Obstructive sleep apnea (adult) (pediatric); Z95.820 Peripheral vascular angioplasty status with implants and grafts; Z79.4 Long term (current) use of insulin; Z68.39 Body mass index [BMI] 39.0-39.9, adult | CPT/HCPCS: 11042 ==

== ENCOUNTER → 2019-07-28 | Outpatient (CLI) | payer MEDICARE, OTHER | END | disposition home or self-care (01) | LOC: HBOWC 08:09 | PROVIDERS: ATTEND Emergency Medicine | DX: I83.025 Varicose veins of left lower extremity with ulcer other part of foot (principal); E11.621 Type 2 diabetes mellitus with foot ulcer; I70.235 Atherosclerosis of native arteries of right leg with ulceration of other part of foot; L97.512 Non-pressure chronic ulcer of other part of right foot with fat layer exposed; I83.015 Varicose veins of right lower extremity with ulcer other part of foot; I70.245 Atherosclerosis of native arteries of left leg with ulceration of other part of foot; L97.522 Non-pressure chronic ulcer of other part of left foot with fat layer exposed; E11.42 Type 2 diabetes mellitus with diabetic polyneuropathy; I96 Gangrene, not elsewhere classified; E78.5 Hyperlipidemia, unspecified; I11.0 Hypertensive heart disease with heart failure; I50.9 Heart failure, unspecified; E03.9 Hypothyroidism, unspecified; E66.01 Morbid (severe) obesity due to excess calories; I48.91 Unspecified atrial fibrillation; B35.3 Tinea pedis; G47.33 Obstructive sleep apnea (adult) (pediatric); Z95.820 Peripheral vascular angioplasty status with implants and grafts; Z79.4 Long term (current) use of insulin; Z68.39 Body mass index [BMI] 39.0-39.9, adult | CPT/HCPCS: 97597 ==

== ENCOUNTER → 2019-08-11 | Outpatient (CLI) | payer MEDICARE, OTHER ==
[~2019-08-11] MED LIST changes: +LIDOCAINE 2% 5 ML JELLY TP ONE
== END | disposition home or self-care (01) ==
LOC: HBOWC 07:53
PROVIDERS: ATTEND Emergency Medicine
DX: I83.025 Varicose veins of left lower extremity with ulcer other part of foot (principal); E11.621 Type 2 diabetes mellitus with foot ulcer; I70.235 Atherosclerosis of native arteries of right leg with ulceration of other part of foot; L97.512 Non-pressure chronic ulcer of other part of right foot with fat layer exposed; I83.015 Varicose veins of right lower extremity with ulcer other part of foot; I70.245 Atherosclerosis of native arteries of left leg with ulceration of other part of foot; L97.522 Non-pressure chronic ulcer of other part of left foot with fat layer exposed; E11.42 Type 2 diabetes mellitus with diabetic polyneuropathy; E11.52 Type 2 diabetes mellitus with diabetic peripheral angiopathy with gangrene; I96 Gangrene, not elsewhere classified; E78.5 Hyperlipidemia, unspecified; I11.0 Hypertensive heart disease with heart failure; I50.9 Heart failure, unspecified; E03.9 Hypothyroidism, unspecified; E66.01 Morbid (severe) obesity due to excess calories; I48.91 Unspecified atrial fibrillation; B35.3 Tinea pedis; G47.33 Obstructive sleep apnea (adult) (pediatric); Z95.820 Peripheral vascular angioplasty status with implants and grafts; Z79.4 Long term (current) use of insulin; Z68.39 Body mass index [BMI] 39.0-39.9, adult
CPT/HCPCS: 11042; 87070; 87205

== ENCOUNTER → 2019-08-17 | Outpatient (CLI) | payer MEDICARE, OTHER | END | disposition home or self-care (01) | LOC: HBOWC 09:36 | PROVIDERS: ATTEND Surgery Plastic and Reconstructive Surgery | DX: I83.025 Varicose veins of left lower extremity with ulcer other part of foot (principal); E11.621 Type 2 diabetes mellitus with foot ulcer; I70.235 Atherosclerosis of native arteries of right leg with ulceration of other part of foot; L97.512 Non-pressure chronic ulcer of other part of right foot with fat layer exposed; I83.015 Varicose veins of right lower extremity with ulcer other part of foot; I70.245 Atherosclerosis of native arteries of left leg with ulceration of other part of foot; L97.522 Non-pressure chronic ulcer of other part of left foot with fat layer exposed; E11.42 Type 2 diabetes mellitus with diabetic polyneuropathy; E11.52 Type 2 diabetes mellitus with diabetic peripheral angiopathy with gangrene; I96 Gangrene, not elsewhere classified; E78.5 Hyperlipidemia, unspecified; I11.0 Hypertensive heart disease with heart failure; I50.9 Heart failure, unspecified; E03.9 Hypothyroidism, unspecified; E66.01 Morbid (severe) obesity due to excess calories; I48.91 Unspecified atrial fibrillation; B35.3 Tinea pedis; G47.33 Obstructive sleep apnea (adult) (pediatric); Z95.820 Peripheral vascular angioplasty status with implants and grafts; Z79.4 Long term (current) use of insulin; Z68.39 Body mass index [BMI] 39.0-39.9, adult ==

== ENCOUNTER → 2019-09-01 | Outpatient (CLI) | payer MEDICARE, OTHER ==
[~2019-09-01] MED LIST changes: -LIDOCAINE 2% 5 ML JELLY TP ONE
== END | disposition home or self-care (01) ==
LOC: HBOWC 08:00
PROVIDERS: ATTEND Emergency Medicine
DX: I83.025 Varicose veins of left lower extremity with ulcer other part of foot (principal); E11.621 Type 2 diabetes mellitus with foot ulcer; I70.235 Atherosclerosis of native arteries of right leg with ulceration of other part of foot; L97.512 Non-pressure chronic ulcer of other part of right foot with fat layer exposed; I83.015 Varicose veins of right lower extremity with ulcer other part of foot; I70.245 Atherosclerosis of native arteries of left leg with ulceration of other part of foot; L97.522 Non-pressure chronic ulcer of other part of left foot with fat layer exposed; E11.42 Type 2 diabetes mellitus with diabetic polyneuropathy; E11.52 Type 2 diabetes mellitus with diabetic peripheral angiopathy with gangrene; I96 Gangrene, not elsewhere classified; E78.5 Hyperlipidemia, unspecified; I11.0 Hypertensive heart disease with heart failure; I50.9 Heart failure, unspecified; E03.9 Hypothyroidism, unspecified; E66.01 Morbid (severe) obesity due to excess calories; I48.91 Unspecified atrial fibrillation; B35.3 Tinea pedis; G47.33 Obstructive sleep apnea (adult) (pediatric); Z95.820 Peripheral vascular angioplasty status with implants and grafts; Z79.4 Long term (current) use of insulin; Z68.39 Body mass index [BMI] 39.0-39.9, adult
CPT/HCPCS: 11042

== ENCOUNTER → 2019-09-08 | Outpatient (CLI) | payer MEDICARE, OTHER ==
[~2019-09-08] MED LIST changes: +LIDOCAINE 2% 5 ML JELLY ONE
== END | disposition home or self-care (01) ==
LOC: HBOWC 07:53
PROVIDERS: ATTEND Emergency Medicine
DX: M19.072 Primary osteoarthritis, left ankle and foot (principal); M86.8X7 Other osteomyelitis, ankle and foot; L97.529 Non-pressure chronic ulcer of other part of left foot with unspecified severity; E11.621 Type 2 diabetes mellitus with foot ulcer; M21.272 Flexion deformity, left ankle and toes; M25.872 Other specified joint disorders, left ankle and foot
CPT/HCPCS: 85651; 86140

== ENCOUNTER → 2019-09-15 | Outpatient (CLI) | payer MEDICARE, OTHER ==
[~2019-09-15] MED LIST changes: -LIDOCAINE 2% 5 ML JELLY ONE
== END | disposition home or self-care (01) ==
LOC: HBOWC 07:57
PROVIDERS: ATTEND Emergency Medicine
DX: I83.025 Varicose veins of left lower extremity with ulcer other part of foot (principal); E11.621 Type 2 diabetes mellitus with foot ulcer; I70.245 Atherosclerosis of native arteries of left leg with ulceration of other part of foot; L97.522 Non-pressure chronic ulcer of other part of left foot with fat layer exposed; I70.235 Atherosclerosis of native arteries of right leg with ulceration of other part of foot; I83.015 Varicose veins of right lower extremity with ulcer other part of foot; L97.511 Non-pressure chronic ulcer of other part of right foot limited to breakdown of skin; S81.812A Laceration without foreign body, left lower leg, initial encounter; E11.42 Type 2 diabetes mellitus with diabetic polyneuropathy; E11.52 Type 2 diabetes mellitus with diabetic peripheral angiopathy with gangrene; I96 Gangrene, not elsewhere classified; E78.5 Hyperlipidemia, unspecified; I11.0 Hypertensive heart disease with heart failure; I50.9 Heart failure, unspecified; E03.9 Hypothyroidism, unspecified; E66.01 Morbid (severe) obesity due to excess calories; I48.91 Unspecified atrial fibrillation; B35.3 Tinea pedis; G47.33 Obstructive sleep apnea (adult) (pediatric); E11.69 Type 2 diabetes mellitus with other specified complication; M86.8X7 Other osteomyelitis, ankle and foot; M19.072 Primary osteoarthritis, left ankle and foot; Z95.820 Peripheral vascular angioplasty status with implants and grafts; Z79.4 Long term (current) use of insulin; Z68.39 Body mass index [BMI] 39.0-39.9, adult; X58.XXXA Exposure to other specified factors, initial encounter; Y93.89 Activity, other specified; Y92.89 Other specified places as the place of occurrence of the external cause; Y99.8 Other external cause status
CPT/HCPCS: 11042

== ENCOUNTER → 2019-09-22 | Outpatient (CLI) | payer MEDICARE, OTHER | END | disposition home or self-care (01) | LOC: HBOWC 07:53 | PROVIDERS: ATTEND Emergency Medicine | DX: I83.025 Varicose veins of left lower extremity with ulcer other part of foot (principal); E11.621 Type 2 diabetes mellitus with foot ulcer; I70.245 Atherosclerosis of native arteries of left leg with ulceration of other part of foot; L97.522 Non-pressure chronic ulcer of other part of left foot with fat layer exposed; I70.235 Atherosclerosis of native arteries of right leg with ulceration of other part of foot; I83.015 Varicose veins of right lower extremity with ulcer other part of foot; L97.511 Non-pressure chronic ulcer of other part of right foot limited to breakdown of skin; S81.812D Laceration without foreign body, left lower leg, subsequent encounter; E11.42 Type 2 diabetes mellitus with diabetic polyneuropathy; E11.52 Type 2 diabetes mellitus with diabetic peripheral angiopathy with gangrene; I96 Gangrene, not elsewhere classified; E78.5 Hyperlipidemia, unspecified; I11.0 Hypertensive heart disease with heart failure; I50.9 Heart failure, unspecified; E03.9 Hypothyroidism, unspecified; E66.01 Morbid (severe) obesity due to excess calories; I48.91 Unspecified atrial fibrillation; B35.3 Tinea pedis; G47.33 Obstructive sleep apnea (adult) (pediatric); E11.69 Type 2 diabetes mellitus with other specified complication; M86.8X7 Other osteomyelitis, ankle and foot; M19.072 Primary osteoarthritis, left ankle and foot; Z95.820 Peripheral vascular angioplasty status with implants and grafts; Z79.4 Long term (current) use of insulin; Z68.39 Body mass index [BMI] 39.0-39.9, adult; X58.XXXD Exposure to other specified factors, subsequent encounter | CPT/HCPCS: 11042; 87070; 87205 ==

== ENCOUNTER → 2019-09-24 | Outpatient (CLI) | payer MEDICARE, OTHER ==
[~2019-09-24] MED LIST changes: +MEDRONATE TC99M/UD<30 MCL ISOTOPE 1 EA INJ INJ ONE
== END | disposition home or self-care (01) ==
LOC: RADMN 12:40
PROVIDERS: ATTEND Emergency Medicine
DX: M86.8X7 Other osteomyelitis, ankle and foot (principal); M25.872 Other specified joint disorders, left ankle and foot
CPT/HCPCS: 78315; A9503

== ENCOUNTER → 2019-09-29 | Outpatient (CLI) | payer MEDICARE, OTHER ==
[~2019-09-29] MED LIST changes: +LIDOCAINE 2% 5 ML JELLY TP ONE; -MEDRONATE TC99M/UD<30 MCL ISOTOPE 1 EA INJ INJ ONE
== END | disposition home or self-care (01) ==
LOC: HBOWC 09:51
PROVIDERS: ATTEND Emergency Medicine
DX: E11.621 Type 2 diabetes mellitus with foot ulcer (principal); I70.245 Atherosclerosis of native arteries of left leg with ulceration of other part of foot; L97.522 Non-pressure chronic ulcer of other part of left foot with fat layer exposed; I70.235 Atherosclerosis of native arteries of right leg with ulceration of other part of foot; I83.015 Varicose veins of right lower extremity with ulcer other part of foot; L97.511 Non-pressure chronic ulcer of other part of right foot limited to breakdown of skin; S81.812D Laceration without foreign body, left lower leg, subsequent encounter; E11.42 Type 2 diabetes mellitus with diabetic polyneuropathy; E11.52 Type 2 diabetes mellitus with diabetic peripheral angiopathy with gangrene; I96 Gangrene, not elsewhere classified; E78.5 Hyperlipidemia, unspecified; I11.0 Hypertensive heart disease with heart failure; I50.9 Heart failure, unspecified; E03.9 Hypothyroidism, unspecified; E66.01 Morbid (severe) obesity due to excess calories; I48.91 Unspecified atrial fibrillation; B35.3 Tinea pedis; G47.33 Obstructive sleep apnea (adult) (pediatric); E11.69 Type 2 diabetes mellitus with other specified complication; M86.8X7 Other osteomyelitis, ankle and foot; M19.072 Primary osteoarthritis, left ankle and foot; Z95.820 Peripheral vascular angioplasty status with implants and grafts; Z79.4 Long term (current) use of insulin; Z68.39 Body mass index [BMI] 39.0-39.9, adult; X58.XXXD Exposure to other specified factors, subsequent encounter
CPT/HCPCS: 11042; 87070; 87205

== ENCOUNTER → 2019-09-30 | Outpatient (CLI) | payer MEDICARE, OTHER ==
[~2019-09-30] MED LIST changes: -LIDOCAINE 2% 5 ML JELLY TP ONE
[2019-09-30 11:14] LABS: BASOPHILS % (AUTO) 0.5 % (0.0-2.0); EOSINOPHILS % (AUTO) 2.4 % (1.0-6.0); HEMATOCRIT 40.5 % (41-53); HEMOGLOBIN 13.6 g/dL (13.5-17.5); LYMPHOCYTES # (AUTO) 1.2 K/uL (1.0-4.8); LYMPHOCYTES % (AUTO) 14.4 % (22.0-44.0); MEAN CORPUSCULAR HEMOGLOBIN 33.6 pg (26.0-34.0); MEAN CORPUSCULAR HGB CONC 33.6 G/dL (31.0-37.0); MEAN CORPUSCULAR VOLUME 100 fL (80-100); MONOCYTES # (AUTO) 0.9 K/uL (0.1-1.0); NEUTROPHILS # (AUTO) 6.2 K/uL (1.8-7.7); NEUTROPHILS % (AUTO) 72.7 % (40.0-70.0); PLATELET COUNT (AUTO) 130 K/uL (150-450); RED BLOOD CELL COUNT(AUTO) 4.05 MIL/uL (4.50-5.90); RED CELL DISTRIBUTION WIDTH 15.1 % (11.5-14.5)
[2019-09-30 12:10] LABS: ERYTHROCYTE SEDIMENTATION RATE 36 MM/HR (0-15)
== END | disposition home or self-care (01) ==
LOC: LABPV 07:32
PROVIDERS: ATTEND Emergency Medicine
DX: L97.529 Non-pressure chronic ulcer of other part of left foot with unspecified severity (principal); E11.621 Type 2 diabetes mellitus with foot ulcer
CPT/HCPCS: 85651; 86140

== ENCOUNTER → 2019-10-07 | Outpatient (CLI) | payer MEDICARE, OTHER ==
[~2019-10-07] MED LIST changes: +GENTAMICIN SULFATE 0.1% 15 GM OINTMENT TP ONE; +LIDOCAINE 2% 5 ML JELLY TP ONE
== END | disposition home or self-care (01) ==
LOC: HBOWC 07:51
PROVIDERS: ATTEND Internal Medicine
DX: E11.621 Type 2 diabetes mellitus with foot ulcer (principal); I70.245 Atherosclerosis of native arteries of left leg with ulceration of other part of foot; L97.522 Non-pressure chronic ulcer of other part of left foot with fat layer exposed; I70.235 Atherosclerosis of native arteries of right leg with ulceration of other part of foot; I83.015 Varicose veins of right lower extremity with ulcer other part of foot; L97.511 Non-pressure chronic ulcer of other part of right foot limited to breakdown of skin; S81.812D Laceration without foreign body, left lower leg, subsequent encounter; E11.42 Type 2 diabetes mellitus with diabetic polyneuropathy; E11.52 Type 2 diabetes mellitus with diabetic peripheral angiopathy with gangrene; I96 Gangrene, not elsewhere classified; E78.5 Hyperlipidemia, unspecified; I11.0 Hypertensive heart disease with heart failure; I50.9 Heart failure, unspecified; E03.9 Hypothyroidism, unspecified; E66.01 Morbid (severe) obesity due to excess calories; I48.91 Unspecified atrial fibrillation; B35.3 Tinea pedis; G47.33 Obstructive sleep apnea (adult) (pediatric); E11.69 Type 2 diabetes mellitus with other specified complication; M86.8X7 Other osteomyelitis, ankle and foot; M19.072 Primary osteoarthritis, left ankle and foot; Z95.820 Peripheral vascular angioplasty status with implants and grafts; Z79.4 Long term (current) use of insulin; Z68.39 Body mass index [BMI] 39.0-39.9, adult; X58.XXXD Exposure to other specified factors, subsequent encounter
CPT/HCPCS: 11042

== ENCOUNTER → 2019-10-13 | Outpatient (CLI) | payer MEDICARE, OTHER | END | disposition home or self-care (01) | LOC: HBOWC 08:01 | PROVIDERS: ATTEND Emergency Medicine | DX: E11.621 Type 2 diabetes mellitus with foot ulcer (principal); I70.245 Atherosclerosis of native arteries of left leg with ulceration of other part of foot; I83.225 Varicose veins of left lower extremity with both ulcer other part of foot and inflammation; L97.522 Non-pressure chronic ulcer of other part of left foot with fat layer exposed; I70.235 Atherosclerosis of native arteries of right leg with ulceration of other part of foot; I83.015 Varicose veins of right lower extremity with ulcer other part of foot; L97.511 Non-pressure chronic ulcer of other part of right foot limited to breakdown of skin; T24.202D Burn of second degree of unspecified site of left lower limb, except ankle and foot, subsequent encounter; T31.0 Burns involving less than 10% of body surface; E11.42 Type 2 diabetes mellitus with diabetic polyneuropathy; E11.52 Type 2 diabetes mellitus with diabetic peripheral angiopathy with gangrene; I96 Gangrene, not elsewhere classified; E78.5 Hyperlipidemia, unspecified; I11.0 Hypertensive heart disease with heart failure; I50.9 Heart failure, unspecified; E03.9 Hypothyroidism, unspecified; E66.01 Morbid (severe) obesity due to excess calories; I48.91 Unspecified atrial fibrillation; B35.3 Tinea pedis; G47.33 Obstructive sleep apnea (adult) (pediatric); E11.69 Type 2 diabetes mellitus with other specified complication; M86.8X7 Other osteomyelitis, ankle and foot; M19.072 Primary osteoarthritis, left ankle and foot; Z95.820 Peripheral vascular angioplasty status with implants and grafts; Z79.4 Long term (current) use of insulin; Z68.39 Body mass index [BMI] 39.0-39.9, adult; X58.XXXD Exposure to other specified factors, subsequent encounter; X08.8XXD Exposure to other specified smoke, fire and flames, subsequent encounter | CPT/HCPCS: 11042; 97597 ==

== ENCOUNTER → 2019-10-27 | Outpatient (CLI) | payer MEDICARE, OTHER ==
[~2019-10-27] MED LIST changes: -GENTAMICIN SULFATE 0.1% 15 GM OINTMENT TP ONE; -LIDOCAINE 2% 5 ML JELLY TP ONE
== END | disposition home or self-care (01) ==
LOC: HBOWC 07:39
PROVIDERS: ATTEND Emergency Medicine
DX: E11.621 Type 2 diabetes mellitus with foot ulcer (principal); I70.245 Atherosclerosis of native arteries of left leg with ulceration of other part of foot; I83.225 Varicose veins of left lower extremity with both ulcer other part of foot and inflammation; L97.522 Non-pressure chronic ulcer of other part of left foot with fat layer exposed; I70.235 Atherosclerosis of native arteries of right leg with ulceration of other part of foot; I83.015 Varicose veins of right lower extremity with ulcer other part of foot; L97.512 Non-pressure chronic ulcer of other part of right foot with fat layer exposed; T24.202D Burn of second degree of unspecified site of left lower limb, except ankle and foot, subsequent encounter; T31.0 Burns involving less than 10% of body surface; E11.42 Type 2 diabetes mellitus with diabetic polyneuropathy; E11.52 Type 2 diabetes mellitus with diabetic peripheral angiopathy with gangrene; I96 Gangrene, not elsewhere classified; E78.5 Hyperlipidemia, unspecified; I11.0 Hypertensive heart disease with heart failure; I50.9 Heart failure, unspecified; E03.9 Hypothyroidism, unspecified; E66.01 Morbid (severe) obesity due to excess calories; I48.91 Unspecified atrial fibrillation; B35.3 Tinea pedis; G47.33 Obstructive sleep apnea (adult) (pediatric); E11.69 Type 2 diabetes mellitus with other specified complication; M86.8X7 Other osteomyelitis, ankle and foot; M19.072 Primary osteoarthritis, left ankle and foot; Z95.820 Peripheral vascular angioplasty status with implants and grafts; Z79.4 Long term (current) use of insulin; Z68.39 Body mass index [BMI] 39.0-39.9, adult; L84 Corns and callosities
CPT/HCPCS: 11042

== ENCOUNTER → 2019-11-10 | Outpatient (CLI) | payer MEDICARE, OTHER | END | disposition home or self-care (01) | LOC: HBOWC 07:54 | PROVIDERS: ATTEND Emergency Medicine | DX: E11.621 Type 2 diabetes mellitus with foot ulcer (principal); I70.245 Atherosclerosis of native arteries of left leg with ulceration of other part of foot; I83.225 Varicose veins of left lower extremity with both ulcer other part of foot and inflammation; L97.522 Non-pressure chronic ulcer of other part of left foot with fat layer exposed; E11.42 Type 2 diabetes mellitus with diabetic polyneuropathy; E11.52 Type 2 diabetes mellitus with diabetic peripheral angiopathy with gangrene; I96 Gangrene, not elsewhere classified; E78.5 Hyperlipidemia, unspecified; I11.0 Hypertensive heart disease with heart failure; I50.9 Heart failure, unspecified; E03.9 Hypothyroidism, unspecified; E66.01 Morbid (severe) obesity due to excess calories; I48.91 Unspecified atrial fibrillation; B35.3 Tinea pedis; G47.33 Obstructive sleep apnea (adult) (pediatric); E11.69 Type 2 diabetes mellitus with other specified complication; M86.8X7 Other osteomyelitis, ankle and foot; M19.072 Primary osteoarthritis, left ankle and foot; L84 Corns and callosities; Z95.820 Peripheral vascular angioplasty status with implants and grafts; Z79.4 Long term (current) use of insulin; Z68.39 Body mass index [BMI] 39.0-39.9, adult | CPT/HCPCS: 11042 ==

== ENCOUNTER → 2019-11-17 | Outpatient (CLI) | payer MEDICARE, BC ==
[~2019-11-17] MED LIST changes: +POTA8TAB71 PO; -SLOWK8 PO
== END | disposition home or self-care (01) ==
LOC: HBOWC 07:35
PROVIDERS: ATTEND Emergency Medicine
DX: E11.621 Type 2 diabetes mellitus with foot ulcer (principal); I70.245 Atherosclerosis of native arteries of left leg with ulceration of other part of foot; I83.225 Varicose veins of left lower extremity with both ulcer other part of foot and inflammation; L97.521 Non-pressure chronic ulcer of other part of left foot limited to breakdown of skin; E11.42 Type 2 diabetes mellitus with diabetic polyneuropathy; E11.52 Type 2 diabetes mellitus with diabetic peripheral angiopathy with gangrene; I96 Gangrene, not elsewhere classified; E78.5 Hyperlipidemia, unspecified; I11.0 Hypertensive heart disease with heart failure; I50.9 Heart failure, unspecified; E03.9 Hypothyroidism, unspecified; E66.01 Morbid (severe) obesity due to excess calories; I48.91 Unspecified atrial fibrillation; B35.3 Tinea pedis; G47.33 Obstructive sleep apnea (adult) (pediatric); E11.69 Type 2 diabetes mellitus with other specified complication; M86.8X7 Other osteomyelitis, ankle and foot; M19.072 Primary osteoarthritis, left ankle and foot; L84 Corns and callosities; Z95.820 Peripheral vascular angioplasty status with implants and grafts; Z79.4 Long term (current) use of insulin; Z68.39 Body mass index [BMI] 39.0-39.9, adult

== ENCOUNTER → 2019-12-01 | Outpatient (CLI) | payer MEDICARE, BC ==
[~2019-12-01] MED LIST changes: +GABA-1201 PO; -GABA-533 PO
== END | disposition home or self-care (01) ==
LOC: HBOWC 07:53
PROVIDERS: ATTEND Emergency Medicine
DX: M19.072 Primary osteoarthritis, left ankle and foot (principal); E11.621 Type 2 diabetes mellitus with foot ulcer; L97.519 Non-pressure chronic ulcer of other part of right foot with unspecified severity; L97.529 Non-pressure chronic ulcer of other part of left foot with unspecified severity; I87.8 Other specified disorders of veins; M20.12 Hallux valgus (acquired), left foot; M77.32 Calcaneal spur, left foot; I70.202 Unspecified atherosclerosis of native arteries of extremities, left leg

== ENCOUNTER → 2019-12-15 | Outpatient (CLI) | payer MEDICARE, BC | END | disposition home or self-care (01) | LOC: HBOWC 07:25 | PROVIDERS: ATTEND Emergency Medicine | DX: E11.621 Type 2 diabetes mellitus with foot ulcer (principal); I70.245 Atherosclerosis of native arteries of left leg with ulceration of other part of foot; I83.225 Varicose veins of left lower extremity with both ulcer other part of foot and inflammation; L97.522 Non-pressure chronic ulcer of other part of left foot with fat layer exposed; E11.42 Type 2 diabetes mellitus with diabetic polyneuropathy; E11.52 Type 2 diabetes mellitus with diabetic peripheral angiopathy with gangrene; I96 Gangrene, not elsewhere classified; E78.5 Hyperlipidemia, unspecified; I11.0 Hypertensive heart disease with heart failure; I50.9 Heart failure, unspecified; E03.9 Hypothyroidism, unspecified; E66.01 Morbid (severe) obesity due to excess calories; I48.91 Unspecified atrial fibrillation; B35.3 Tinea pedis; G47.33 Obstructive sleep apnea (adult) (pediatric); E11.69 Type 2 diabetes mellitus with other specified complication; M86.8X7 Other osteomyelitis, ankle and foot; M19.072 Primary osteoarthritis, left ankle and foot; L84 Corns and callosities; Z95.820 Peripheral vascular angioplasty status with implants and grafts; Z79.4 Long term (current) use of insulin; Z68.39 Body mass index [BMI] 39.0-39.9, adult | CPT/HCPCS: 11042; 87070; 87205 ==

== ENCOUNTER → 2019-12-22 | Outpatient (CLI) | payer MEDICARE, BC ==
[~2019-12-22] MED LIST changes: +LIDOCAINE 2% 5 ML JELLY TP ONE
== END | disposition home or self-care (01) ==
LOC: HBOWC 07:37
PROVIDERS: ATTEND Emergency Medicine
DX: E11.621 Type 2 diabetes mellitus with foot ulcer (principal); I70.245 Atherosclerosis of native arteries of left leg with ulceration of other part of foot; I83.225 Varicose veins of left lower extremity with both ulcer other part of foot and inflammation; L97.522 Non-pressure chronic ulcer of other part of left foot with fat layer exposed; E11.42 Type 2 diabetes mellitus with diabetic polyneuropathy; E11.52 Type 2 diabetes mellitus with diabetic peripheral angiopathy with gangrene; I96 Gangrene, not elsewhere classified; E78.5 Hyperlipidemia, unspecified; I11.0 Hypertensive heart disease with heart failure; I50.9 Heart failure, unspecified; E03.9 Hypothyroidism, unspecified; E66.01 Morbid (severe) obesity due to excess calories; I48.91 Unspecified atrial fibrillation; B35.3 Tinea pedis; G47.33 Obstructive sleep apnea (adult) (pediatric); E11.69 Type 2 diabetes mellitus with other specified complication; M86.8X7 Other osteomyelitis, ankle and foot; M19.072 Primary osteoarthritis, left ankle and foot; L84 Corns and callosities; Z95.820 Peripheral vascular angioplasty status with implants and grafts; Z79.4 Long term (current) use of insulin; Z68.39 Body mass index [BMI] 39.0-39.9, adult
CPT/HCPCS: 11042

== ENCOUNTER → 2020-01-05 | Outpatient (CLI) | payer MEDICARE, BC ==
[~2020-01-05] MED LIST changes: +GENTAMICIN SULFATE 0.1% 15 GM OINTMENT TP ONE
== END | disposition home or self-care (01) ==
LOC: HBOWC 07:58
PROVIDERS: ATTEND Emergency Medicine
DX: E11.621 Type 2 diabetes mellitus with foot ulcer (principal); I70.245 Atherosclerosis of native arteries of left leg with ulceration of other part of foot; L97.522 Non-pressure chronic ulcer of other part of left foot with fat layer exposed; E11.42 Type 2 diabetes mellitus with diabetic polyneuropathy; E11.52 Type 2 diabetes mellitus with diabetic peripheral angiopathy with gangrene; I96 Gangrene, not elsewhere classified; E78.5 Hyperlipidemia, unspecified; I11.0 Hypertensive heart disease with heart failure; I50.9 Heart failure, unspecified; E03.9 Hypothyroidism, unspecified; M20.12 Hallux valgus (acquired), left foot; I87.8 Other specified disorders of veins; E66.01 Morbid (severe) obesity due to excess calories; I48.91 Unspecified atrial fibrillation; B35.3 Tinea pedis; G47.33 Obstructive sleep apnea (adult) (pediatric); E11.69 Type 2 diabetes mellitus with other specified complication; M86.8X7 Other osteomyelitis, ankle and foot; M19.072 Primary osteoarthritis, left ankle and foot; L84 Corns and callosities; Z95.820 Peripheral vascular angioplasty status with implants and grafts; Z79.4 Long term (current) use of insulin; Z68.39 Body mass index [BMI] 39.0-39.9, adult
CPT/HCPCS: 11042

== ENCOUNTER → 2020-01-12 | Outpatient (CLI) | payer MEDICARE, BC ==
[~2020-01-12] MED LIST changes: -LIDOCAINE 2% 5 ML JELLY TP ONE
== END | disposition home or self-care (01) ==
LOC: HBOWC 07:42
PROVIDERS: ATTEND Emergency Medicine
DX: E11.621 Type 2 diabetes mellitus with foot ulcer (principal); I70.245 Atherosclerosis of native arteries of left leg with ulceration of other part of foot; I83.225 Varicose veins of left lower extremity with both ulcer other part of foot and inflammation; L97.521 Non-pressure chronic ulcer of other part of left foot limited to breakdown of skin; E11.42 Type 2 diabetes mellitus with diabetic polyneuropathy; E11.52 Type 2 diabetes mellitus with diabetic peripheral angiopathy with gangrene; I96 Gangrene, not elsewhere classified; E78.5 Hyperlipidemia, unspecified; I11.0 Hypertensive heart disease with heart failure; I50.9 Heart failure, unspecified; E03.9 Hypothyroidism, unspecified; E66.01 Morbid (severe) obesity due to excess calories; I48.91 Unspecified atrial fibrillation; B35.3 Tinea pedis; G47.33 Obstructive sleep apnea (adult) (pediatric); E11.69 Type 2 diabetes mellitus with other specified complication; M86.672 Other chronic osteomyelitis, left ankle and foot; M19.072 Primary osteoarthritis, left ankle and foot; L84 Corns and callosities; Z95.820 Peripheral vascular angioplasty status with implants and grafts; Z79.4 Long term (current) use of insulin; Z68.39 Body mass index [BMI] 39.0-39.9, adult

== ENCOUNTER → 2020-02-02 | Outpatient (CLI) | payer MEDICARE, BC ==
[~2020-02-02] MED LIST changes: -GENTAMICIN SULFATE 0.1% 15 GM OINTMENT TP ONE
== END | disposition home or self-care (01) ==
LOC: HBOWC 07:26
PROVIDERS: ATTEND Emergency Medicine
DX: E11.621 Type 2 diabetes mellitus with foot ulcer (principal); I70.245 Atherosclerosis of native arteries of left leg with ulceration of other part of foot; I83.225 Varicose veins of left lower extremity with both ulcer other part of foot and inflammation; L97.528 Non-pressure chronic ulcer of other part of left foot with other specified severity; E11.42 Type 2 diabetes mellitus with diabetic polyneuropathy; E11.52 Type 2 diabetes mellitus with diabetic peripheral angiopathy with gangrene; I96 Gangrene, not elsewhere classified; E78.5 Hyperlipidemia, unspecified; I11.0 Hypertensive heart disease with heart failure; I50.9 Heart failure, unspecified; E03.9 Hypothyroidism, unspecified; E66.01 Morbid (severe) obesity due to excess calories; I48.91 Unspecified atrial fibrillation; B35.3 Tinea pedis; G47.33 Obstructive sleep apnea (adult) (pediatric); E11.69 Type 2 diabetes mellitus with other specified complication; M86.672 Other chronic osteomyelitis, left ankle and foot; M19.072 Primary osteoarthritis, left ankle and foot; L84 Corns and callosities; Z95.820 Peripheral vascular angioplasty status with implants and grafts; Z79.4 Long term (current) use of insulin; Z68.39 Body mass index [BMI] 39.0-39.9, adult
CPT/HCPCS: G0463; Z7500

== ENCOUNTER → 2020-03-08 | Outpatient (CLI) | payer MEDICARE, BC ==
[~2020-03-08] MED LIST changes: +ALLO-44 PO; -ALLO100T PO; +CLOP-31 PO; -CLOP75TA3 PO
== END | disposition home or self-care (01) ==
LOC: HBOWC 07:23
PROVIDERS: ATTEND Emergency Medicine
DX: E11.621 Type 2 diabetes mellitus with foot ulcer (principal); I70.245 Atherosclerosis of native arteries of left leg with ulceration of other part of foot; I83.225 Varicose veins of left lower extremity with both ulcer other part of foot and inflammation; L97.522 Non-pressure chronic ulcer of other part of left foot with fat layer exposed; E11.42 Type 2 diabetes mellitus with diabetic polyneuropathy; E11.52 Type 2 diabetes mellitus with diabetic peripheral angiopathy with gangrene; I96 Gangrene, not elsewhere classified; E78.5 Hyperlipidemia, unspecified; I11.0 Hypertensive heart disease with heart failure; I50.9 Heart failure, unspecified; E03.9 Hypothyroidism, unspecified; I48.91 Unspecified atrial fibrillation; R26.9 Unspecified abnormalities of gait and mobility; B35.3 Tinea pedis; G47.33 Obstructive sleep apnea (adult) (pediatric); E11.69 Type 2 diabetes mellitus with other specified complication; M86.672 Other chronic osteomyelitis, left ankle and foot; M19.072 Primary osteoarthritis, left ankle and foot; L84 Corns and callosities; E66.01 Morbid (severe) obesity due to excess calories; Z68.39 Body mass index [BMI] 39.0-39.9, adult; Z95.820 Peripheral vascular angioplasty status with implants and grafts; Z79.4 Long term (current) use of insulin
CPT/HCPCS: 11042; 87070; 87205

== ENCOUNTER → 2020-03-15 | Outpatient (CLI) | payer MEDICARE, BC ==
[~2020-03-15] MED LIST changes: -ACET-2247 PO; +ACET-2865 PO
== END | disposition home or self-care (01) ==
LOC: HBOWC 08:19
PROVIDERS: ATTEND Emergency Medicine
DX: E11.621 Type 2 diabetes mellitus with foot ulcer (principal); L97.522 Non-pressure chronic ulcer of other part of left foot with fat layer exposed; S91.101A Unspecified open wound of right great toe without damage to nail, initial encounter; I87.2 Venous insufficiency (chronic) (peripheral); E11.42 Type 2 diabetes mellitus with diabetic polyneuropathy; E11.51 Type 2 diabetes mellitus with diabetic peripheral angiopathy without gangrene; E11.69 Type 2 diabetes mellitus with other specified complication; M86.672 Other chronic osteomyelitis, left ankle and foot; L84 Corns and callosities; I11.0 Hypertensive heart disease with heart failure; I50.9 Heart failure, unspecified; E78.5 Hyperlipidemia, unspecified; E03.9 Hypothyroidism, unspecified; I48.91 Unspecified atrial fibrillation; J44.9 Chronic obstructive pulmonary disease, unspecified; G47.33 Obstructive sleep apnea (adult) (pediatric); E66.01 Morbid (severe) obesity due to excess calories; Z68.39 Body mass index [BMI] 39.0-39.9, adult; Z79.4 Long term (current) use of insulin; Z96.653 Presence of artificial knee joint, bilateral; Z96.641 Presence of right artificial hip joint; X58.XXXA Exposure to other specified factors, initial encounter; Y93.89 Activity, other specified; Y92.89 Other specified places as the place of occurrence of the external cause; Y99.8 Other external cause status
CPT/HCPCS: 11042

== ENCOUNTER → 2020-03-29 | Outpatient (CLI) | payer MEDICARE, BC ==
[~2020-03-29] MED LIST changes: +LIDOCAINE 2% 5 ML JELLY ONE
== END | disposition home or self-care (01) ==
LOC: HBOWC 07:50
PROVIDERS: ATTEND Emergency Medicine
DX: E11.621 Type 2 diabetes mellitus with foot ulcer (principal); L97.528 Non-pressure chronic ulcer of other part of left foot with other specified severity; S91.101D Unspecified open wound of right great toe without damage to nail, subsequent encounter; I87.2 Venous insufficiency (chronic) (peripheral); E11.42 Type 2 diabetes mellitus with diabetic polyneuropathy; E11.69 Type 2 diabetes mellitus with other specified complication; M86.672 Other chronic osteomyelitis, left ankle and foot; L84 Corns and callosities; I11.0 Hypertensive heart disease with heart failure; I50.9 Heart failure, unspecified; E78.5 Hyperlipidemia, unspecified; E03.9 Hypothyroidism, unspecified; I48.91 Unspecified atrial fibrillation; J44.9 Chronic obstructive pulmonary disease, unspecified; G47.33 Obstructive sleep apnea (adult) (pediatric); B35.3 Tinea pedis; E11.52 Type 2 diabetes mellitus with diabetic peripheral angiopathy with gangrene; I96 Gangrene, not elsewhere classified; M19.072 Primary osteoarthritis, left ankle and foot; E66.01 Morbid (severe) obesity due to excess calories; Z68.39 Body mass index [BMI] 39.0-39.9, adult; Z95.820 Peripheral vascular angioplasty status with implants and grafts; Z79.4 Long term (current) use of insulin; Z96.653 Presence of artificial knee joint, bilateral; Z96.641 Presence of right artificial hip joint; X58.XXXD Exposure to other specified factors, subsequent encounter

== ENCOUNTER → 2020-11-01 | Outpatient (CLI) | payer MEDICARE, BC ==
[~2020-11-01] MED LIST changes: +ACET-2247 PO; -ACET-2865 PO; -ALLO-44 PO; +ALLO100T2 PO; -CLOP-31 PO; +CLOP75TA60 PO; -LIDOCAINE 2% 5 ML JELLY ONE; -LISI-662 PO; +LISI-894 PO
== END | disposition home or self-care (01) ==
LOC: HBOWC 08:31
PROVIDERS: ATTEND Emergency Medicine
DX: E11.621 Type 2 diabetes mellitus with foot ulcer (principal); L97.522 Non-pressure chronic ulcer of other part of left foot with fat layer exposed; S91.302D Unspecified open wound, left foot, subsequent encounter; I11.0 Hypertensive heart disease with heart failure; I50.9 Heart failure, unspecified; E78.5 Hyperlipidemia, unspecified; I87.2 Venous insufficiency (chronic) (peripheral); E11.42 Type 2 diabetes mellitus with diabetic polyneuropathy; E11.69 Type 2 diabetes mellitus with other specified complication; M86.672 Other chronic osteomyelitis, left ankle and foot; L84 Corns and callosities; E03.9 Hypothyroidism, unspecified; I48.91 Unspecified atrial fibrillation; J44.9 Chronic obstructive pulmonary disease, unspecified; R26.9 Unspecified abnormalities of gait and mobility; G47.33 Obstructive sleep apnea (adult) (pediatric); B35.3 Tinea pedis; E11.52 Type 2 diabetes mellitus with diabetic peripheral angiopathy with gangrene; I96 Gangrene, not elsewhere classified; M19.072 Primary osteoarthritis, left ankle and foot; E66.9 Obesity, unspecified; Z68.39 Body mass index [BMI] 39.0-39.9, adult; Z95.820 Peripheral vascular angioplasty status with implants and grafts; Z79.4 Long term (current) use of insulin; Z96.653 Presence of artificial knee joint, bilateral; Z96.641 Presence of right artificial hip joint; X58.XXXD Exposure to other specified factors, subsequent encounter
CPT/HCPCS: 11042; 87070; 87077; 87186; 87205; 99205; 99215

== ENCOUNTER → 2020-11-08 | Outpatient (CLI) | payer MEDICARE, BC ==
[~2020-11-08] MED LIST changes: +LIDOCAINE 2% 5 ML JELLY ONE
== END | disposition home or self-care (01) ==
LOC: HBOWC 08:33
PROVIDERS: ATTEND Emergency Medicine
DX: E11.621 Type 2 diabetes mellitus with foot ulcer (principal); L97.521 Non-pressure chronic ulcer of other part of left foot limited to breakdown of skin; B35.3 Tinea pedis; E11.51 Type 2 diabetes mellitus with diabetic peripheral angiopathy without gangrene; E11.69 Type 2 diabetes mellitus with other specified complication; M86.679 Other chronic osteomyelitis, unspecified ankle and foot; S91.302D Unspecified open wound, left foot, subsequent encounter; I87.2 Venous insufficiency (chronic) (peripheral); E11.42 Type 2 diabetes mellitus with diabetic polyneuropathy; M86.672 Other chronic osteomyelitis, left ankle and foot; L84 Corns and callosities; I11.0 Hypertensive heart disease with heart failure; I50.9 Heart failure, unspecified; E78.5 Hyperlipidemia, unspecified; E03.9 Hypothyroidism, unspecified; I48.91 Unspecified atrial fibrillation; J44.9 Chronic obstructive pulmonary disease, unspecified; R26.9 Unspecified abnormalities of gait and mobility; G47.33 Obstructive sleep apnea (adult) (pediatric); E11.52 Type 2 diabetes mellitus with diabetic peripheral angiopathy with gangrene; I96 Gangrene, not elsewhere classified; M19.072 Primary osteoarthritis, left ankle and foot; E66.9 Obesity, unspecified; Z68.39 Body mass index [BMI] 39.0-39.9, adult; Z95.820 Peripheral vascular angioplasty status with implants and grafts; Z79.4 Long term (current) use of insulin; Z96.653 Presence of artificial knee joint, bilateral; Z96.641 Presence of right artificial hip joint; X58.XXXD Exposure to other specified factors, subsequent encounter
CPT/HCPCS: 97597; 99215

== ENCOUNTER → 2020-11-15 | Outpatient (CLI) | payer MEDICARE, BC ==
[~2020-11-15] MED LIST changes: -LIDOCAINE 2% 5 ML JELLY ONE
== END | disposition home or self-care (01) ==
LOC: HBOWC 08:14
PROVIDERS: ATTEND Emergency Medicine
DX: E11.621 Type 2 diabetes mellitus with foot ulcer (principal); L97.522 Non-pressure chronic ulcer of other part of left foot with fat layer exposed; S91.302D Unspecified open wound, left foot, subsequent encounter; I87.2 Venous insufficiency (chronic) (peripheral); E11.42 Type 2 diabetes mellitus with diabetic polyneuropathy; E11.69 Type 2 diabetes mellitus with other specified complication; M86.672 Other chronic osteomyelitis, left ankle and foot; L84 Corns and callosities; I11.0 Hypertensive heart disease with heart failure; I50.9 Heart failure, unspecified; E78.5 Hyperlipidemia, unspecified; E03.9 Hypothyroidism, unspecified; I48.91 Unspecified atrial fibrillation; J44.9 Chronic obstructive pulmonary disease, unspecified; R26.9 Unspecified abnormalities of gait and mobility; G47.33 Obstructive sleep apnea (adult) (pediatric); B35.3 Tinea pedis; E11.52 Type 2 diabetes mellitus with diabetic peripheral angiopathy with gangrene; I96 Gangrene, not elsewhere classified; M19.072 Primary osteoarthritis, left ankle and foot; E66.9 Obesity, unspecified; Z68.39 Body mass index [BMI] 39.0-39.9, adult; Z95.820 Peripheral vascular angioplasty status with implants and grafts; Z79.4 Long term (current) use of insulin; Z96.653 Presence of artificial knee joint, bilateral; Z96.641 Presence of right artificial hip joint; X58.XXXD Exposure to other specified factors, subsequent encounter
CPT/HCPCS: 11042; 99215

== ENCOUNTER → 2020-11-29 | Outpatient (CLI) | payer MEDICARE, BC ==
[~2020-11-29] MED LIST changes: +LIDOCAINE 4% 50 ML SOLUTION TP ONE
== END | disposition home or self-care (01) ==
LOC: HBOWC 08:04
PROVIDERS: ATTEND Emergency Medicine
DX: E11.621 Type 2 diabetes mellitus with foot ulcer (principal); L97.522 Non-pressure chronic ulcer of other part of left foot with fat layer exposed; S91.302D Unspecified open wound, left foot, subsequent encounter; I87.2 Venous insufficiency (chronic) (peripheral); E11.42 Type 2 diabetes mellitus with diabetic polyneuropathy; E11.69 Type 2 diabetes mellitus with other specified complication; M86.672 Other chronic osteomyelitis, left ankle and foot; L84 Corns and callosities; I11.0 Hypertensive heart disease with heart failure; I50.9 Heart failure, unspecified; E78.5 Hyperlipidemia, unspecified; E03.9 Hypothyroidism, unspecified; I48.91 Unspecified atrial fibrillation; J44.9 Chronic obstructive pulmonary disease, unspecified; R26.9 Unspecified abnormalities of gait and mobility; G47.33 Obstructive sleep apnea (adult) (pediatric); B35.3 Tinea pedis; E11.52 Type 2 diabetes mellitus with diabetic peripheral angiopathy with gangrene; I96 Gangrene, not elsewhere classified; M19.072 Primary osteoarthritis, left ankle and foot; E66.9 Obesity, unspecified; Z68.39 Body mass index [BMI] 39.0-39.9, adult; Z95.820 Peripheral vascular angioplasty status with implants and grafts; Z79.4 Long term (current) use of insulin; Z96.653 Presence of artificial knee joint, bilateral; Z96.641 Presence of right artificial hip joint; X58.XXXD Exposure to other specified factors, subsequent encounter
CPT/HCPCS: 11042; 99215

== ENCOUNTER → 2020-12-06 | Outpatient (CLI) | payer MEDICARE, BC ==
[~2020-12-06] MED LIST changes: -LIDOCAINE 4% 50 ML SOLUTION TP ONE
== END | disposition home or self-care (01) ==
LOC: HBOWC 08:16
PROVIDERS: ATTEND Emergency Medicine
DX: E11.621 Type 2 diabetes mellitus with foot ulcer (principal); L97.521 Non-pressure chronic ulcer of other part of left foot limited to breakdown of skin; S91.302D Unspecified open wound, left foot, subsequent encounter; I87.2 Venous insufficiency (chronic) (peripheral); E11.42 Type 2 diabetes mellitus with diabetic polyneuropathy; E11.69 Type 2 diabetes mellitus with other specified complication; M86.672 Other chronic osteomyelitis, left ankle and foot; L84 Corns and callosities; I11.0 Hypertensive heart disease with heart failure; I50.9 Heart failure, unspecified; E78.5 Hyperlipidemia, unspecified; E03.9 Hypothyroidism, unspecified; I48.91 Unspecified atrial fibrillation; J44.9 Chronic obstructive pulmonary disease, unspecified; R26.9 Unspecified abnormalities of gait and mobility; G47.33 Obstructive sleep apnea (adult) (pediatric); B35.3 Tinea pedis; E11.52 Type 2 diabetes mellitus with diabetic peripheral angiopathy with gangrene; I96 Gangrene, not elsewhere classified; M19.072 Primary osteoarthritis, left ankle and foot; E66.9 Obesity, unspecified; Z68.39 Body mass index [BMI] 39.0-39.9, adult; Z95.820 Peripheral vascular angioplasty status with implants and grafts; Z79.4 Long term (current) use of insulin; Z96.653 Presence of artificial knee joint, bilateral; Z96.641 Presence of right artificial hip joint; X58.XXXD Exposure to other specified factors, subsequent encounter
CPT/HCPCS: 97597; 99215

== ENCOUNTER → 2020-12-20 | Outpatient (CLI) | payer MEDICARE, BC | END | disposition home or self-care (01) | LOC: HBOWC 08:13 | PROVIDERS: ATTEND Emergency Medicine | DX: E11.621 Type 2 diabetes mellitus with foot ulcer (principal); L97.521 Non-pressure chronic ulcer of other part of left foot limited to breakdown of skin; S91.302D Unspecified open wound, left foot, subsequent encounter; I87.2 Venous insufficiency (chronic) (peripheral); E11.42 Type 2 diabetes mellitus with diabetic polyneuropathy; E11.69 Type 2 diabetes mellitus with other specified complication; M86.672 Other chronic osteomyelitis, left ankle and foot; L84 Corns and callosities; E11.22 Type 2 diabetes mellitus with diabetic chronic kidney disease; I13.0 Hypertensive heart and chronic kidney disease with heart failure and stage 1 through stage 4 chronic kidney disease, or unspecified chronic kidney disease; I50.9 Heart failure, unspecified; N18.9 Chronic kidney disease, unspecified; E78.5 Hyperlipidemia, unspecified; E03.9 Hypothyroidism, unspecified; I48.91 Unspecified atrial fibrillation; J44.9 Chronic obstructive pulmonary disease, unspecified; R26.9 Unspecified abnormalities of gait and mobility; G47.33 Obstructive sleep apnea (adult) (pediatric); B35.3 Tinea pedis; E11.52 Type 2 diabetes mellitus with diabetic peripheral angiopathy with gangrene; I96 Gangrene, not elsewhere classified; M19.072 Primary osteoarthritis, left ankle and foot; E66.9 Obesity, unspecified; Z68.39 Body mass index [BMI] 39.0-39.9, adult; Z95.820 Peripheral vascular angioplasty status with implants and grafts; Z79.4 Long term (current) use of insulin; Z96.653 Presence of artificial knee joint, bilateral; Z96.641 Presence of right artificial hip joint; X58.XXXD Exposure to other specified factors, subsequent encounter | CPT/HCPCS: 97597; G0463 ==

== ENCOUNTER → 2021-01-03 | Outpatient (CLI) | payer MEDICARE, BC | END | disposition home or self-care (01) | LOC: HBOWC 08:15 | PROVIDERS: ATTEND Emergency Medicine | DX: E11.621 Type 2 diabetes mellitus with foot ulcer (principal); L97.521 Non-pressure chronic ulcer of other part of left foot limited to breakdown of skin; S91.302D Unspecified open wound, left foot, subsequent encounter; I87.2 Venous insufficiency (chronic) (peripheral); E11.42 Type 2 diabetes mellitus with diabetic polyneuropathy; E11.69 Type 2 diabetes mellitus with other specified complication; M86.672 Other chronic osteomyelitis, left ankle and foot; L84 Corns and callosities; E11.22 Type 2 diabetes mellitus with diabetic chronic kidney disease; I13.0 Hypertensive heart and chronic kidney disease with heart failure and stage 1 through stage 4 chronic kidney disease, or unspecified chronic kidney disease; I50.9 Heart failure, unspecified; N18.9 Chronic kidney disease, unspecified; E78.5 Hyperlipidemia, unspecified; E03.9 Hypothyroidism, unspecified; I48.91 Unspecified atrial fibrillation; J44.9 Chronic obstructive pulmonary disease, unspecified; G47.33 Obstructive sleep apnea (adult) (pediatric); M19.072 Primary osteoarthritis, left ankle and foot; E11.52 Type 2 diabetes mellitus with diabetic peripheral angiopathy with gangrene; I96 Gangrene, not elsewhere classified; R26.9 Unspecified abnormalities of gait and mobility; B35.3 Tinea pedis; E66.9 Obesity, unspecified; Z68.39 Body mass index [BMI] 39.0-39.9, adult; Z95.820 Peripheral vascular angioplasty status with implants and grafts; Z79.4 Long term (current) use of insulin; Z96.653 Presence of artificial knee joint, bilateral; Z96.641 Presence of right artificial hip joint; X58.XXXD Exposure to other specified factors, subsequent encounter | CPT/HCPCS: G0463 ==